=== PATIENT | female | born 1990 | race Two or more races ===

== ENCOUNTER 2025-01-07 11:08 | Outpatient (AMB) | payer BC, SELFPAY ==
--- NOTE | 2025-01-07 11:16 | OBCLNT_ITS ---
Vital Signs 01/07/25 11:17 Height 1.57 m Height Method Stated Weight 99.507 kg Weight Measurement Method Standing Scale BMI 40.1 BP 106/75 Blood Pressure Source Automatic Cuff Blood Pressure Location Left Upper Arm Position Sitting Respiration 18 Pulse 110 H Pulse Source Monitor Temp 97.2 F Temp Source Oral Pulse Oximetry (%) 98 Oxygen Delivery Method Room Air Allergies/Home Meds Allergies & Medications Allergies No Known Allergies Allergy (Verified 01/07/25 11:18) Medication Reconciliation No Known Home Medications 01/07/25 [History Confirmed 01/07/25] Intake Visit Data Collection New Patient or Established: New Patient (never been to [facility]) Reason for Visit:: NEW OBI Seen by Clinical Staff ONLY (RN/MA): No Continuous Process Coffee Roaster Required: No Do You Feel Safe at Home: Yes Authorities Contacted: N/A PCP or OBGYN visit in last 3 months: No Hx Now: Yes Are you currently on any form of Control: No Last menstrual period: 05/11/24 Pain Present Currently: No Pain Scale Used: Keene-Figueroa/Numerical Pain scale:: 0 Smoking Status Smoking Status: Never smoker Questionnaires Covid-19 Vaccine Questionnaire Has patient been vacinated for Covid-19 Have you been vacinated for Covid-19: Yes PHQ-9 PHQ-2 Over the last 2 weeks, how often have you been bothered by any of the following problems? 1. Little interest or pleasure in doing things: not at all 2. Feeling down, depressed, or hopeless: not at all Total score: 0 PHQ-9 3. Trouble falling or staying asleep, or sleeping too much: Not at all 4. Feeling tired or having little energy: Not at all 5. Poor appetite or overeating: Not at all 6. Feeling bad about yourself - or that you are a failure or have let yourself or your family down: Not at all 7. Trouble concentrating on things, such as reading the newspaper or watching television: Not at all 8. Moving or speaking so slowly that other people could have noticed? - Or the opposite - being so fidgety or restless that you have been moving around a lot more than usual: not at all 9. Thoughts that you would be better off or of hurting yourself in some way: Not at all Total score: 0 If you checked off any problems, how difficult have these problems made it for you to do your work, take care of things at home, or get along with other people?: not difficult at all Source: Developed by Drs. Boaz Bledsoe, Cinda Balbuena, Joe Nolen and colleagues, with an educational feroz from [employer]. Depression screen completed yes Social History Living Situation History Marital Status: Lives With: Family Housing: House Tobacco History Smoking Status: Never smoker Second Hand Smoke Exposure: No Alcohol History Alcohol Intake: Former Alcohol Intake Frequency: holidays/special occasions only Domestic Abuse History Do You Feel Safe at Home: Yes History of Present Illness HPI Narrative 34 at 35 week for OB transfer from Dr faith for OB care. LMP 05/11/25. EDC 02/13/25. OB sono 07/02/24, EDC 8,2. Changed EDC to 02/09/25. planned . complicated by abn 1 hr GTT and elevated 3 hr gtt. patient diagnosed with GDM. started on Metformin 500 q hs. states the fasting value is the only elevated value. results depend on her diet. . patient is O+,abs-, rpr;;nr, rub imm, HBSAG-,HIV-, HC-, GC/CT-, UA-. AFP/NIPT and carrier screen-. denies social habit,no surgery. FOB involved. reports fetus is active, No PTL complaints OB Initial Visit OB Flowsheet OB Flowsheet Initial Weight: Not Recorded Date -?--?-?-?-?-?-?-?-?-?-?-?- EGA Weight Edema CTX Effacement BP Fundal ht Pres Dilation Effacement Station Visit Note Alb Glu FHR Mov 01/07/25 -?-?-?-?-?-?-?-?-?-?-?-?- 35w 2d 99.507 kg absent absent 106/75 cephalic 34 yo IUP 35 week by 8 week sono for OB transfer. GDM on metformin 500mg Q HS, cheks BS 4 x dailt, reports fasting over 100 usually, depening on diet. patient had stopped taking metformin for several days. fetus active, still working, no labor complaints, schedule MFM appointment for growth, continue metformin 500 q HS, start weekly nst/bpp, fkc bid, I discussed diet and fkc, walk 40 min daily. rtc 2 week, gbs nv 146 active Menstrual History Menstrual reliability: definite Flow: normal Menstrual regularity: regular Monthly: Yes Age at menarche: 13 On control pills at conception: No OB History Para: 1 Hx # Pregnancies: 0 Hx Total # of Abortions (Spontaneous & Elective): 0 # of Living Children: 0 Infection History & Risk Evaluation History of STDs: none HIV risk evaluation: low risk Hepatitis B risk evaluation: low risk Patient or partner has history of Genital Herpes: No Varicella/chicken pox status: immunized Genetic Screening & History Genetic Screening/Teratology Counseling - Includes patient, baby's father, or anyone in either family with: 1. Patient's age 35 years or older as of estimated date of delivery: No 2. Thalassemia (Malawian, Mexican, Mediterranean, or Background); MCV less than 80: No 3. Neural Tube Defect (Meningomyelocele, Spina Bifida, or Anencephaly): No 4. Congenital Heart Defect: No 5. Down Syndrome: No 6. Baldo-Sachs (Ashkenazi Buddhist, Cajun, Botswanan Gregg): No 7. Catrachita Disease (Ashkenazi Buddhist): No 8. Familial Dysautonomia (Ashkenazi Buddhist): No 9. Sickle Cell Disease or Trait (): No 10. Hemophilia or other blood disorders: No 11. Muscular Dystrophy: No 12. Cystic Fibrosis: No 13. [place] Chorea: No 14. Mental Retardation/Autism: No 15. Other inherited genetic or chromosomal disorder: No 16. Maternal Metabolic Disorder (EG,TYPE 1 Diabetes, PKU): No 17. Patient or baby's father had a child with defects not listed above: No 18. Recurrent loss or a stillbirth: No 19. Medications (including supplements, vitamins, herbs or otc drugs)/illicit/recreational drugs/alcohol since last menstrual period: No 20. Any other: No Infection History 1. Live with someone with TB or exposed to TB: No 2. Rash or viral illness since last menstrual period: No 3. Hepatitis B,C: No Other (see comments) Source: [employer] Review of Systems Review of Systems Systems Reviewed: All systems reviewed, normal except as documented Exam General Limitations: no limitations General Appearance: alert, in no apparent distress, comfortable, cooperative, healthy appearing, well developed and well groomed Head Head exam: atraumatic, normocephalic and normal inspection Resp Respiratory exam: Present normal lung sounds bilaterally Card Cardiovascular exam: Present regular rate, normal rhythm and normal heart sounds Abdominal Abdominal exam: Present soft and normal bowel sounds Psych Psychiatric exam: Present normal affect and normal mood Office Procedures OB Clinic LOC & Office Proc's Nursing/Assessment Patient Status: Initial/New Patient OB Clinic Nursing Assessment: Medication Reconciliation, Update PMH in EMR and Vital Signs OB Clinic Coordination of Care: Education Complex Pt/Fam, Consent,records obtained, informed consent and Staff clarify orders Special Needs: Heart tones New Patient Charge New Patient Point Assignment: [id number] New Patient Point Charge: RET[employer] PROFESSIONAL Level 3 ([id number]) Assessment & Plan Diagnosis / Problem List (1) Encounter for care in third trimester of first : Status: Acute Plan continue PNV, start week nst/bpp, fkc bid, schedule MFM referral. discuss labor precaution, review GDM diet, glucose monitoring 4 x daily. walk 40 minute daily, increase fluid. rtc 1 week, GBS nv Additional Plan Follow Up: 1 Week (obc)
[2025-01-07 11:17] VITALS: BP 106/75; PULSE 110; RESP 18; TEMP 36.2; O2SAT 98; BMI 40.1
== END 2025-01-07 11:41 | disposition home or self-care (01) ==
LOC: HODSOBC 11:08
PROVIDERS: PCP Obstetrics & Gynecology; Referring Provider Obstetrics & Gynecology; Supervising Provider Advanced Practice Midwife; Visit Provider Advanced Practice Midwife
DX: O09.893 Supervision of other high risk pregnancies, third trimester (principal); Z3A.35 35 weeks gestation of pregnancy; O24.415 Gestational diabetes mellitus in pregnancy, controlled by oral hypoglycemic drugs
CPT/HCPCS: 81001; 99203; G0463

== ENCOUNTER → 2025-01-07 | Outpatient (CLI) | payer BC, SELFPAY ==
[2025-01-07 13:49] LABS: Glucose Estimated Average 108 mg/dL (80-131); Hemoglobin A1C 5.4 % Hgb (4.8-6.0)
== END | disposition home or self-care (01) ==
PROVIDERS: Referring Provider Advanced Practice Midwife; Visit Provider Advanced Practice Midwife
DX: Z34.03 Encounter for supervision of normal first pregnancy, third trimester (principal)
CPT/HCPCS: 36415; 83036

== ENCOUNTER 2025-01-14 15:24 | Outpatient (AMB) | payer BC, SELFPAY ==
--- NOTE | 2025-01-14 15:32 | OBCLNT_ITS ---
Vital Signs 01/14/25 15:45 Height 1.57 m Height Method Stated Weight 99.337 kg Weight Measurement Method Standing Scale BMI 40.3 BP 115/76 Blood Pressure Source Automatic Cuff Blood Pressure Location Right Upper Arm Position Sitting Respiration 20 Pulse 92 Pulse Source Monitor Temp 98 F Temp Source Oral Pulse Oximetry (%) 96 Oxygen Delivery Method Room Air Allergies/Home Meds Allergies & Medications Allergies No Known Allergies Allergy (Verified 01/14/25 15:45) Medication Reconciliation No Known Home Medications 01/07/25 [History Confirmed 01/14/25] Intake Visit Data Collection New Patient or Established: Established Patient (seen at [facility] within 3 years) Reason for Visit:: CARE Seen by Clinical Staff ONLY (RN/MA): No Fitness Specialist Required: No Do You Feel Safe at Home: Yes Authorities Contacted: N/A PCP or OBGYN visit in last 3 months: Yes Hx Now: Yes Are you currently on any form of Control: No Pain Present Currently: No Pain Scale Used: Keene-Figueroa/Numerical Pain scale:: 0 Smoking Status Smoking Status: Never smoker Questionnaires Covid-19 Vaccine Questionnaire Has patient been vacinated for Covid-19 Have you been vacinated for Covid-19: Yes PHQ-9 PHQ-2 Over the last 2 weeks, how often have you been bothered by any of the following problems? 1. Little interest or pleasure in doing things: not at all 2. Feeling down, depressed, or hopeless: not at all Total score: 0 PHQ-9 3. Trouble falling or staying asleep, or sleeping too much: Not at all 4. Feeling tired or having little energy: Not at all 5. Poor appetite or overeating: Not at all 6. Feeling bad about yourself - or that you are a failure or have let yourself or your family down: Not at all 7. Trouble concentrating on things, such as reading the newspaper or watching television: Not at all 8. Moving or speaking so slowly that other people could have noticed? - Or the opposite - being so fidgety or restless that you have been moving around a lot more than usual: not at all 9. Thoughts that you would be better off or of hurting yourself in some way: Not at all Total score: 0 Source: Developed by Drs. Boaz L. Cinda Bledsoe Kurt Kroenke and colleagues, with an educational feroz from [employer]. Depression screen completed yes Social History Living Situation History Lives With: Family Housing: House Tobacco History Smoking Status: Never smoker Second Hand Smoke Exposure: No Alcohol History Alcohol Intake: Former Alcohol Intake Frequency: holidays/special occasions only Domestic Abuse History Do You Feel Safe at Home: Yes Care OB Visit Log OB Flowsheet Initial Weight: Not Recorded Date -?-?-?-?-?-?-?-?-?-?-?-?- EGA Weight BP Alb Glu CTX Pres Fundal ht FHR Mov Dilation Station Effacement Hx Notes Visit Note 01/07/25 -?-?-?-?-?-?-?-?-?-?-?-?- 35w 2d 99.507 kg 106/75 absent cephalic 146 active 34 yo IUP 35 week by 8 week sono for OB transfer. GDM on metformin 500mg Q HS, cheks BS 4 x dailt, reports fasting over 100 usually, depening on diet. patient had stopped taking metformin for several days. fetus active, still working, no labor complaints, schedule MFM appointment for growth, continue metformin 500 q HS, start weekly nst/bpp, fkc bid, I discussed diet and fkc, walk 40 min daily. rtc 2 week, gbs nv 01/14/25 -?-?-?-?-?-?-?-?-?-?-?-?- 36w 2d 99.337 kg 115/76 absent cephalic 36 145 active GDM on Metformin 500 qhs. reports Improved compliance with GDM diet. reviewed BS on ap. fasting under 100 :85% of the time. otherwise BS after meals are at goal. patient walk 1 hr daily. reports good FM and compliant with FKC bid. week NST/BPP started. MFM pending/was ordered urgent GBS t madhavi. GBS today.. continue FKC bid . review labor precaution. reviewed diet and compliance, continue to track sugars and testing, continue week NST/BPP. patient will call [facility] for appointment. rtc 1 week SHARON Calculator Estimated Delivery Date Method Current WG Current Estimate 02/09/25 Ultrasound #1 36w 2d Other Estimates 02/15/25 LMP (Certain) 35w 3d 01/30/25 Ultrasound #2 37w 5d Notes Visit Date: 01/07/25 Last Updated by: Madelin Viveros, KARINA 34 yo , GDM, metformin 500 Qhs. 1 hr gt and 3hr gtt high. RPR:Nr, , GC/CT-,O+,abs-, HBSAG-,HIV-,HC-, AFP<NIPT, carrier neg. LMP: 05/11/24. EDC 02/13/25. sharon by 8.2 wk sono: 02/09/25, 07/02/24:8w2 Office Procedures OB Clinic LOC & Office Proc's Nursing/Assessment Patient Status: Established Patient OB Clinic Nursing Assessment: Medication Reconciliation, Update PMH in EMR and Vital Signs OB Clinic Coordination of Care: Complex Care and Chronic Disease 1-5, Consent,records obtained, informed consent, Education Simp Pt/Fam, Lab and Imaging orders, Results/Orders obtained and Staff clarify orders Special Needs: Heart tones Miscellaneous Interventions: Pelvic no cultures Established Patient Charge Established Patient Point Assignment: 145 Established Patient Point Charge: EP Level 4 (120-155) Assessment & Plan Diagnosis / Problem List (1) Obstetric risk in patient in third trimester, antepartum: Status: Acute (2) Diet controlled gestational diabetes mellitus (GDM) in third trimester: Status: Acute Plan continue week NST/BPP. discuss labor precaution and fkc bid. continue compliance with Metformin 500 at hs, and continue GDM diet. GBS done. . continue to monitor BS fasting and after meals. f/u with OB NV to eval sugars Additional Plan Follow Up: 1 Week (ob check)
[2025-01-14 15:45] VITALS: BP 115/76; PULSE 92; RESP 20; TEMP 36.6; O2SAT 96; BMI 40.3
== END 2025-01-14 16:13 | disposition home or self-care (01) ==
LOC: HODSOBC 15:24
PROVIDERS: PCP Advanced Practice Midwife; Referring Provider Advanced Practice Midwife; Supervising Provider Advanced Practice Midwife; Visit Provider Advanced Practice Midwife
DX: O09.893 Supervision of other high risk pregnancies, third trimester (principal); O24.410 Gestational diabetes mellitus in pregnancy, diet controlled; Z3A.36 36 weeks gestation of pregnancy
CPT/HCPCS: 99214; G0463

== ENCOUNTER 2025-01-20 09:23 | Outpatient (AMB) | payer BC, SELFPAY ==
[2025-01-20 10:06] VITALS: BP 120/84; PULSE 96; RESP 18; TEMP 36.5; O2SAT 97; BMI 40.3
--- NOTE | 2025-01-20 10:06 | OBCLNT_ITS ---
Vital Signs 01/20/25 10:06 Height 1.57 m Height Method Stated Weight 99.45 kg Weight Measurement Method Standing Scale BMI 40.3 BP 120/84 Blood Pressure Source Automatic Cuff Blood Pressure Location Right Upper Arm Position Sitting Respiration 18 Pulse 96 Pulse Source Monitor Temp 97.7 F Temp Source Oral Pulse Oximetry (%) 97 Oxygen Delivery Method Room Air Allergies/Home Meds Allergies & Medications Allergies No Known Allergies Allergy (Verified 01/20/25 10:08) Medication Reconciliation No Known Home Medications 01/07/25 [History Confirmed 01/20/25] Intake Visit Data Collection New Patient or Established: Established Patient (seen at [facility] within 3 years) Reason for Visit:: - Routine visit at 37 weeks and 1 day gestation - Gestational diabetes, on metformin - Increased numbness in arms and hands, notice it more this week Seen by Clinical Staff ONLY (RN/MA): No College Instructor Required: No Do You Feel Safe at Home: Yes Authorities Contacted: N/A PCP or OBGYN visit in last 3 months: Yes Hx Now: Yes Are you currently on any form of Control: No Pain Present Currently: No Pain Scale Used: Keene-Figueroa/Numerical Pain scale:: 0 Smoking Status Smoking Status: Never smoker Questionnaires Covid-19 Vaccine Questionnaire Has patient been vacinated for Covid-19 Have you been vacinated for Covid-19: Yes PHQ-9 PHQ-2 Over the last 2 weeks, how often have you been bothered by any of the following problems? 1. Little interest or pleasure in doing things: not at all 2. Feeling down, depressed, or hopeless: not at all Total score: 0 PHQ-9 3. Trouble falling or staying asleep, or sleeping too much: Not at all 4. Feeling tired or having little energy: Not at all 5. Poor appetite or overeating: Not at all 6. Feeling bad about yourself - or that you are a failure or have let yourself or your family down: Not at all 7. Trouble concentrating on things, such as reading the newspaper or watching television: Not at all 8. Moving or speaking so slowly that other people could have noticed? - Or the opposite - being so fidgety or restless that you have been moving around a lot more than usual: not at all 9. Thoughts that you would be better off or of hurting yourself in some way: Not at all Total score: 0 Source: Developed by Drs. Boaz Bledsoe, Cinda Balbuena, Joe Nolen and colleagues, with an educational feroz from [employer]. Depression screen completed yes Social History Living Situation History Lives With: Family Housing: House Tobacco History Smoking Status: Never smoker Second Hand Smoke Exposure: No Alcohol History Alcohol Intake: Former Alcohol Intake Frequency: holidays/special occasions only Domestic Abuse History Do You Feel Safe at Home: Yes History of Present Illness HPI Narrative - Veronica Collins is a 37-week and 1-day woman () presenting for a visit with an estimated due date of 02-09-2025. - She has gestational diabetes, managed with metformin 500 mg at night. - Self-monitors blood glucose at home: - Fasting glucose occasionally elevated (102-112 mg/dL) - Reports glucose levels are okay with some high days - movement: - Baby is active, particularly in the morning and after meals - Less activity noted throughout the day - Reports increased numbness in arms and hands, more noticeable this week - Denies any vaginal deliveries or C-sections in the past; this is her first - Recently transferred care from an outside facility ([facility]) - Had Group B Strep (GBS) swab done at the last visit - Scheduled for weekly testing at the hospital No contractions/ LOF/VB, reports good FM No LOPEZ/VC/RUQ/Epig pain Care OB Visit Log OB Flowsheet Initial Weight: Not Recorded Date -?-?-?-?-?-?-?-?-?-?-?-?- EGA Weight BP Alb Glu CTX Pres Fundal ht FHR Mov Dilation Station Effacement Hx Notes Visit Note 01/07/25 -?-?-?-?-?-?-?-?-?-?-?-?- 35w 2d 99.507 kg 106/75 absent cephalic 146 active 34 yo IUP 35 week by 8 week sono for OB transfer. GDM on metformin 500mg Q HS, cheks BS 4 x dailt, reports fasting over 100 usually, depening on diet. patient had stopped taking metformin for several days. fetus active, still working, no labor complaints, schedule MFM appointment for growth, continue metformin 500 q HS, start weekly nst/bpp, fkc bid, I discussed diet and fkc, walk 40 min daily. rtc 2 week, gbs nv 01/14/25 -?-?-?-?-?-?-?-?-?-?-?-?- 36w 2d 99.337 kg 115/76 absent cephalic 36 145 active GDM on Metformin 500 qhs. reports Improved compliance with GDM diet. reviewed BS on ap. fasting under 100 :85% of the time. otherwise BS after meals are at goal. patient walk 1 hr d aily. reports good FM and compliant with FKC bid. week NST/BPP started. MFM pending/was ordered urgent GBS t madhavi. GBS today.. continue FKC bid . review labor precaution. reviewed diet and complia nce, continue to track sugars and testing, continue week NST/BPP. patient will call [facility] [place] for appointment. rtc 1 week 01/20/25 -?-?-?-?-?-?-?-?-?-?-?-?- 37w 1d 99.45 kg 120/84 at 37w1d with gestational diabetes on metformin, presents for routine care. Reports occasional elevated fasting glucose (102?112 mg/dL), but overall self-monitoring okay. Baby active in AM and postprandially, less so throughout day. Complains of increased numbness in arms/hands this week, consistent with carpal tunnel. Transferred care in 3rd trimester; GBS swab completed last visit. NSTs ongoing weekly. FHT 147 bpm. Plan: Schedule ultrasound for growth Book 39w induction date per GDM protocol (patient prefers to avoid but counseled on risks) Continue metformin 500mg qHS and SMBG Continue weekly NSTs Discuss labor plan after ultrasound precautions reviewed SHARON Calculator Estimated Delivery Date Method Current WG Current Estimate 02/09/25 Ultrasound #1 37w 2d Other Estimates 02/15/25 LMP (Certain) 36w 3d 01/30/25 Ultrasound #2 38w 5d Notes Visit Date: 01/07/25 Last Updated by: Madelin Viveros CNM 34 yo , GDM, metformin 500 Qhs. 1 hr gt and 3hr gtt high. RPR:Nr, , GC/CT-,O+,abs-, HBSAG-,HIV-,HC-, AFP<NIPT, carrier neg. LMP: 05/11/24. EDC 02/13/25. sharon by 8.2 wk sono: 02/09/25, 07/02/24:8w2 Exam General General Appearance: alert, in no apparent distress and healthy appearing Head Head exam: atraumatic Neck Neck exam: Present normal inspection and trachea midline Chest Chest inspection: Present normal inspection and symmetric chest wall rise External exam: Present normal external exam; Absent tenderness Neuro Neurological exam: Present oriented X3 Psych Psychiatric exam: Present normal affect and normal mood Office Procedures OB Clinic LOC & Office Proc's Nursing/Assessment Patient Status: Established Patient OB Clinic Nursing Assessment: Medication Reconciliation, Update PMH in EMR and Vital Signs OB Clinic Coordination of Care: Complex Care and Chronic Disease 1-5, Consent,records obtained, informed consent, Education Simp Pt/Fam, Lab and Imaging orders and Staff clarify orders Special Needs: Heart tones Established Patient Charge Established Patient Point Assignment: 130 Established Patient Point Charge: EP Level 4 (120-155) Assessment & Plan Diagnosis / Problem List (1) Obstetric risk in patient in third trimester, antepartum: Status: Acute (2) Diet controlled gestational diabetes mellitus (GDM) in third trimester: Status: Acute Plan Problem List - Gestational diabetes mellitus - , 37 weeks and 1 day - Carpal tunnel syndrome Assessment - 1 para 0 at 37 weeks 1 day gestation - Gestational diabetes mellitus, managed with metformin 500mg nightly - Self-monitoring blood glucose at home, with occasional fasting levels of 102- 112 mg/dL - Transferred care from outside facility in third trimester - Group B Streptococcus (GBS) swab completed at previous visit - movement reported as active, more noticeable in mornings and evenings - testing initiated, with weekly non-stress tests - Carpal tunnel syndrome symptoms, with increased numbness in hands and arms - heart rate 147 bpm Plan - Schedule complete ultrasound to measure baby's weight - Call hospital to book induction date at 39 weeks (patient expressed desire to avoid this, but medically recommended due to gestational diabetes) - Continue metformin 500mg at night - Continue self-monitoring blood glucose at home - Attend scheduled anesthesia appointments at hospital for monitoring - Follow up after ultrasound to discuss results and delivery plan Educated the patient on labor signs, including regular contractions, lower back pain, and changes in vaginal discharge. Advised avoiding heavy lifting and getting adequate rest. Instructed to contact the office immediately if any signs occur. Discussed the importance of a balanced diet rich in folic acid, iron, and calcium, and provided a list of recommended and to-avoid foods. Emphasized avoiding high-sugar foods to reduce gestational diabetes risk. Encouraged hydration and frequent, small meals for energy..
== END 2025-01-20 10:27 | disposition home or self-care (01) ==
LOC: HODSOBC 09:23
PROVIDERS: PCP Advanced Practice Midwife; Referring Provider Advanced Practice Midwife; Supervising Provider Obstetrics & Gynecology; Visit Provider Obstetrics & Gynecology
DX: O09.893 Supervision of other high risk pregnancies, third trimester (principal); Z3A.37 37 weeks gestation of pregnancy; O24.415 Gestational diabetes mellitus in pregnancy, controlled by oral hypoglycemic drugs; O99.353 Diseases of the nervous system complicating pregnancy, third trimester; G56.00 Carpal tunnel syndrome, unspecified upper limb
CPT/HCPCS: 99214; G0463

== ENCOUNTER 2025-01-20 10:40 | Outpatient (CLI) | payer BC, SELFPAY ==
--- NOTE | 2025-01-20 11:09 | XR_ITS ---
Examination: Complete OB ultrasound greater than 14 weeks Date and time of exam: January 20, 2025 1117 hours INDICATIONS: Diagnosis gestational diabetes Findings: Viable intrauterine single fetus with single amniotic sac presentation cephalic Cardiac motion 131 BPM Placenta posterior fundal grade 2 Umbilical cord insertion 3 vessel seen Amniotic fluid index 18 cm Cervix 4.7 cm Nuchal cord x2 Ovaries obscured by bowel gas. Composite estimated gestational age based on BPD, head circumference, abdominal circumference, femur length is 36 weeks 5 days Estimated weight 2860 g. Survey of intracranial anatomy, spinal anatomy, abdominal anatomy, four-chamber heart performed with no abnormalities identified. Impression: Viable intrauterine gestation cephalic presentation Estimated gestational age 36 weeks 5 days Nuchal cord x2 with flow.
[2025-01-20 12:12] VITALS: PULSE 79; O2SAT 99
[2025-01-20 12:16] VITALS: BP 123/71; PULSE 85
[2025-01-20 12:24] VITALS: BP 123/71; PULSE 85; RESP 18; RESP 98; TEMP 36.8; BMI 39.9
== END 2025-01-20 12:55 | disposition home or self-care (01) ==
LOC: S4S1 10:57 → S4SX 10:58
PROVIDERS: Referring Provider Obstetrics & Gynecology; Visit Provider Obstetrics & Gynecology
DX: O24.415 Gestational diabetes mellitus in pregnancy, controlled by oral hypoglycemic drugs (principal); Z3A.36 36 weeks gestation of pregnancy
CPT/HCPCS: 59025; 76805

== ENCOUNTER 2025-01-28 13:59 | Outpatient (RCR) | payer BC, SELFPAY ==
--- NOTE | 2025-01-14 14:13 | XR_ITS ---
Examination: Biophysical profile, ultrasound Date and time of exam: January 14, 2025 1415 hours INDICATIONS: Diagnosis gestational diabetes Technique: Multiple transabdominal sonographic images of the pelvis abdomen obtained. Attention is directed to the breathing movement, gross body movement, amniotic fluid volume and tone. Findings: Amniotic fluid index 14.9 cm Total biophysical profile is 8 of 8. breathing movement is 2. Gross body movement is 2. tone is 2. Qualitative amniotic fluid volume is 2 Impression: Biophysical profile is 8 of 8.
[2025-01-14 14:55] VITALS: BP 99/62; PULSE 92; RESP 16; TEMP 36.7
--- NOTE | 2025-01-21 14:06 | XR_ITS ---
Examination: Biophysical profile, ultrasound Date and time of exam: January 21, 2025 1417 hours INDICATIONS: Diagnosis gestational diabetes Technique: Multiple transabdominal sonographic images of the pelvis abdomen obtained. Attention is directed to the breathing movement, gross body movement, amniotic fluid volume and tone. Findings: Amniotic fluid index 16 cm Total biophysical profile is 8 of 8. breathing movement is 2. Gross body movement is 2. tone is 2. Qualitative amniotic fluid volume is 2 Impression: Biophysical profile is 8 of 8.
[2025-01-21 15:27] VITALS: BP 94/55; PULSE 96; RESP 16; TEMP 36.7
--- NOTE | 2025-01-28 14:08 | XR_ITS ---
Examination: Biophysical profile, ultrasound Date and time of exam: January 28, 2025 1412 hours INDICATIONS: Gestational diabetes diagnosis Technique: Multiple transabdominal sonographic images of the pelvis abdomen obtained. Attention is directed to the breathing movement, gross body movement, amniotic fluid volume and tone. Findings: Amniotic fluid index 15.4 cm Total biophysical profile is 8 of 8. breathing movement is 2. Gross body movement is 2. tone is 2. Qualitative amniotic fluid volume is 2 Impression: Biophysical profile is 8 of 8.
[2025-01-28 14:30] VITALS: BP 114/57; PULSE 85; RESP 16; TEMP 36.8
== END 2025-01-28 23:59 | disposition home or self-care (01) ==
LOC: S4S1 13:59
PROVIDERS: PCP Family Medicine; Referring Provider Advanced Practice Midwife; Visit Provider Advanced Practice Midwife
DX: O24.410 Gestational diabetes mellitus in pregnancy, diet controlled (principal); O09.93 Supervision of high risk pregnancy, unspecified, third trimester; Z3A.38 38 weeks gestation of pregnancy
CPT/HCPCS: 59025; 76819

== ENCOUNTER 2025-01-28 15:04 | Outpatient (AMB) | payer BC, SELFPAY ==
[2025-01-28 15:26] VITALS: BP 115/78; PULSE 98; RESP 18; TEMP 36.6; O2SAT 98; BMI 40.6
--- NOTE | 2025-01-28 15:26 | OBCLNT_ITS ---
Vital Signs 01/28/25 15:26 Height 1.57 m Height Method Stated Weight 100.698 kg Weight Measurement Method Standing Scale BMI 40.6 BP 115/78 Blood Pressure Source Automatic Cuff Blood Pressure Location Right Upper Arm Position Sitting Respiration 18 Pulse 98 Pulse Source Monitor Temp 97.8 F Temp Source Oral Pulse Oximetry (%) 98 Oxygen Delivery Method Room Air Allergies/Home Meds Allergies & Medications Allergies No Known Allergies Allergy (Verified 01/28/25 15:28) Medication Reconciliation No Known Home Medications 01/07/25 [History Confirmed 01/28/25] Intake Visit Data Collection New Patient or Established: Established Patient (seen at [facility] within 3 years) Reason for Visit:: CARE Seen by Clinical Staff ONLY (RN/MA): No Manager Strategic Marketing Required: No Do You Feel Safe at Home: Yes Authorities Contacted: N/A PCP or OBGYN visit in last 3 months: Yes Hx Now: Yes Are you currently on any form of Control: No Pain Present Currently: No Pain Scale Used: Keene-Figueroa/Numerical Pain scale:: 0 Smoking Status Smoking Status: Never smoker Questionnaires Covid-19 Vaccine Questionnaire Has patient been vacinated for Covid-19 Have you been vacinated for Covid-19: Yes PHQ-9 PHQ-2 Over the last 2 weeks, how often have you been bothered by any of the following problems? 1. Little interest or pleasure in doing things: not at all 2. Feeling down, depressed, or hopeless: not at all Total score: 0 PHQ-9 3. Trouble falling or staying asleep, or sleeping too much: Not at all 4. Feeling tired or having little energy: Not at all 5. Poor appetite or overeating: Not at all 6. Feeling bad about yourself - or that you are a failure or have let yourself or your family down: Not at all 7. Trouble concentrating on things, such as reading the newspaper or watching television: Not at all 8. Moving or speaking so slowly that other people could have noticed? - Or the opposite - being so fidgety or restless that you have been moving around a lot more than usual: not at all 9. Thoughts that you would be better off or of hurting yourself in some way: Not at all Total score: 0 Source: Developed by Drs. Boaz Bledsoe, Cinda Balbuena, Joe Nolen and colleagues, with an educational feroz from [employer]. Depression screen completed yes Social History Living Situation History Lives With: Family Housing: House Tobacco History Smoking Status: Never smoker Second Hand Smoke Exposure: No Alcohol History Alcohol Intake: Former Alcohol Intake Frequency: holidays/special occasions only Domestic Abuse History Do You Feel Safe at Home: Yes Care OB Visit Log OB Flowsheet Initial Weight: Not Recorded Date -?-?-?-?-?-?-?-?-?-?-?-?- EGA Weight BP Alb Glu CTX Pres Fundal ht FHR Mov Dilation Station Effacement Hx Notes Visit Note 01/07/25 -?-?-?-?-?-?-?-?-?-?-?-?- 35w 2d 99.507 kg 106/75 absent cephalic 146 active 34 yo IUP 35 week by 8 week sono for OB transfer. GDM on metformin 500mg Q HS, cheks BS 4 x dailt, reports fasting over 100 usually, depening on diet. patient had stopped taking metformin for several days. fetus active, still working, no labor complaints, schedule MFM appointment for growth, continue metformin 500 q HS, start weekly nst/bpp, fkc bid, I discussed diet and fkc, walk 40 min daily. rtc 2 week, gbs nv 01/14/25 -?-?-?-?-?-?-?-?-?-?-?-?- 36w 2d 99.337 kg 115/76 absent cephalic 36 145 active GDM on Metformin 500 qhs. reports Improved compliance with GDM diet. reviewed BS on ap. fasting under 100 :85% of the time. otherwise BS after meals are at goal. patient walk 1 hr daily. reports good FM and compliant with FKC bid. week NST/BPP started. MFM pending/was ordered urgent GBS t madhavi. GBS today.. continue FKC bid . review labor precaution. reviewed diet and compliance, continue to track sugars and testing, continue week NST/BPP. patient will call [facility] for appointment. rtc 1 week 01/20/25 -?-?-?-?-?-?-?-?-?-?-?-?- 37w 1d 99.45 kg 120/84 at 37w1d with gestational diabetes on metformin, presents for routine care. Reports occasional elevated fasting glucose (102?112 mg/dL), but overall self-monitoring okay. Baby active in AM and postprandially, less so throughout day. Complains of increased numbness in arms/hands this week, consistent with carpal tunnel. Transferred care in 3rd trimester; GBS swab completed last visit. NSTs ongoing weekly. FHT 147 bpm. Plan: Schedule ultrasound for growth Book 39w induction date per GDM protocol (patient prefers to avoid but counseled on risks) Continue metformin 500mg qHS and SMBG Continue weekly NSTs Discuss labor plan after ultrasound precautions reviewed 01/28/25 -?-?-?-?-?-?-?-?-?-?-?-?- 38w 2d 100.698 kg 115/78 absent breech 37 145 active 38wk2 with GDM. diet and metformin 500 q hs. reports sugars at goal. fasting below 95. walks 1hr/day. fetus active. compliant with fkc bid. Patient refused IOL at 39 week. agrees to 40 week IOL. discussed procedure and why early IOL is needed discuss labor precaution, fkc bid, continue to monitor BS 4 x/day. continue to log sugars. week nst bpp. continue metformin 500 qhs. labor precaution. rtc 1 week obc discuss labor precaution, fk c bid, continue to monitor BS 4 x/day. continue to log sugars. week nst bpp. continue metformin 500 qhs. labor precaution. rtc 1 week obc. IOL 02/09 SHARON Calculator Estimated Delivery Date Method Current WG Current Estimate 02/09/25 Ultrasound #1 38w 2d Other Estimates 02/15/25 LMP (Certain) 37w 3d 01/30/25 Ultrasound #2 39w 5d Notes Visit Date: 01/07/25 Last Updated by: Madelin Viveros CNM 34 yo , GDM, metformin 500 Qhs. 1 hr gt and 3hr gtt high. RPR:Nr, , GC/CT-,O+,abs-, HBSAG-,HIV-,HC-, AFP<NIPT, carrier neg. LMP: 05/11/24. EDC 02/13/25. sharon by 8.2 wk sono: 02/09/25, 07/02/24:8w2 Office Procedures OB Clinic LOC & Office Proc's Nursing/Assessment Patient Status: Established Patient OB Clinic Nursing Assessment: Medication Reconciliation, Update PMH in EMR and Vital Signs OB Clinic Coordination of Care: Complex Care and Chronic Disease 1-5, Consent,records obtained, informed consent, Education Simp Pt/Fam, Lab and Imaging orders, Results/Orders obtained and Staff clarify orders Special Needs: Heart tones Established Patient Charge Established Patient Point Assignment: 135 Established Patient Point Charge: EP Level 4 (120-155) Assessment & Plan Diagnosis / Problem List (1) Obstetric risk in patient in third trimester, antepartum: Status: Acute (2) Diet controlled gestational diabetes mellitus (GDM) in third trimester: Status: Acute Plan Continue to monitor blood sugars 4 times a day. Continue GDM diet. Continue to walk 40 minutes a day. Continue weekly NST BPP. kick counts twice a day. Increase fluids. Continue vitamins. Induction of labor scheduled for February 09. Discussed induction with patient. Return in a week OB check Additional Plan Follow Up: 1 Week (obc)
== END 2025-01-28 16:12 | disposition home or self-care (01) ==
LOC: HODSOBC 15:04
PROVIDERS: PCP Advanced Practice Midwife; Referring Provider Advanced Practice Midwife; Supervising Provider Advanced Practice Midwife; Visit Provider Advanced Practice Midwife
DX: O09.893 Supervision of other high risk pregnancies, third trimester (principal); O24.415 Gestational diabetes mellitus in pregnancy, controlled by oral hypoglycemic drugs; Z3A.38 38 weeks gestation of pregnancy
CPT/HCPCS: 99214; G0463

== ENCOUNTER 2025-02-01 16:39 | Inpatient (IN) | payer BC, SELFPAY ==
[2025-02-01] VITALS (29 sets, daily range): BP systolic 88–123; BP diastolic 59–77; PULSE 75–95; RESP 18–99; TEMP 36.6–36.7; O2SAT 94–100; BMI 42.8
[2025-02-01 18:00] LABS: ROM Kit Lot # 57809069
[2025-02-01 18:01] LABS: Swb Mxed in Solvent 1 min? Yes
[2025-02-01 18:02] LABS: Rupture of Fetal Membranes Positive (Negative)
[2025-02-01 18:04] LABS: ROM Swab Mixed By: DURAJ
--- NOTE | 2025-02-01 18:17 | XR_ITS ---
Examination: age and TECHNIQUE: Limited transabdominal sonographic images pelvis Date and time: February 01, 2025 1827 hours INDICATIONS: Labor evaluation, leaking amniotic fluid today, and no presentation FINDINGS: presentation cephalic spine maternal right. Cardiac motion 145 BPM IMPRESSION: Viable intrauterine gestation cephalic presentation
[2025-02-01 20:20] LABS: Basophils % (Auto) 0 % (0-2.5); Eosinophils # (Auto) 0.1 Thou/mm3 (0.0-0.5); Eosinophils % (Auto) 1 % (0-10); Hematocrit 34.9 % (36.0-46.0); Hemoglobin 12.7 g/dL (12.0-16.0); Immature Granulocytes % (Auto) 0 % (0-0); Immature Granulocytes Auto 0.03 Thou/mm3 (0.00-0.00); Lymphocytes # (Auto) 1.4 Thou/mm3 (1.0-4.8); Lymphocytes % (Auto) 16 % (10-50); Mean Corpuscular HGB Conc 36.4 g/dl (31.0-37.0); Mean Corpuscular Hemoglobin 31.8 pg (25.0-35.0); Mean Corpuscular Volume 87 fL (80-100); Monocytes # (Auto) 0.8 Thou/mm3 (0.0-0.8); Monocytes % (Auto) 9 % (0-12); Neutrophils # (Auto) 6.6 Thou/mm3 (1.8-7.7); Neutrophils % (Auto) 74 % (37-80); Nucleated Red Blood Cell % 0 /100 WBC (0); Platelet Count 207 Thou/mm3 (140-440); RDW Standard Deviation 41.1 fL (36.4-46.3); White Blood Count 8.8 Thou/mm3 (3.6-11.0)
[2025-02-01 20:56] LABS: Syphilis Nonreactive (Nonreactive)
[2025-02-01] MEDS: Ampicillin Inj 2,000 MG in SODIUM CHLORIDE 0.9% (POP) 100 ML 200 MG IV (21:05)
--- NOTE | 2025-02-01 21:52 | ESHP_ITS ---
Documentation for date of: 02/01/25 OB Labor/Induct. HPI History of Present Illness Chief complaint: ROM/NIL : 1 Para: 0 Term pregnancies: 0 pregnancies: 0 Living children: 0 History of Abortions: Spontaneous and Elective: 0 History of Vaginal deliveries: 0 History of sections: No History of : No Date of last menstrual period: 07/11/24 SHARON: 02/09/25 Gestational Age (weeks): 38 Gestational Age (days): 4 Gestational age based on last menstrual period: 29 History of present illness: Need for weight eight 64-year-old 1 para 0 admit to labor and delivery with complaints of leaking fluid since 4 in the morning. Occasional contraction. Patient was first was seen at Dr. Johnson's office for care. First visit 8 weeks. Last. May 11, 2024. This gave due date February 15, 2025. First ultrasound in June was 8 weeks and is changed due date to February 09, 2025. Patient then had a 25-week ultrasound in September that confirmed dates. Denies social habits. Denies surgery. Denies chronic illness. Patient had a history of abnormal 1 hour that was over 185. So she has been treated for GDM with diet. Glucose has been in good control. And patient has been compliant with weekly NST and BPP. Reports good movement. Patient is O+, antibody screen negative, RPR nonreactive, rubella immune, hepatitis B negative, hep C negative, HIV negative, GC and Chlamydia were negative. aFP was negative. NIPT negative. Carrier screens negative. And GBS was not ran. History of Present Dating criteria: LMP confirmed by 1st trimester US Adequate Care: Yes Ultrasounds: normal 1st trimester US and normal mid trimester US Obstetrical complications: gestational diabetes Medical complications: none Labs Labs: Positive: Rubella Titre, Negative: RPR, Hepatitis B, HIV, Chlamydia and Gonorrhea and Unknown: Herpes Type 1, Herpes Type 2 and Group Beta Strep Past Medical History Surgical History SURGICAL: Negative Section Meds Home Medications and Allergies Home Medications ?Medication ?Instructions ?Recorded ?Confirmed ?Type metformin 500 mg tablet 500 mg PO DAILY 02/01/2504/20 History vit no.95-ferrous 1 tab PO DAILY 02/01/2504/20 History fumarate 28 mg-folic acid 800 mcg tablet () Allergies Allergy/AdvReac Type Severity Reaction Status Date / Time No Known Allergies Allergy Verified 02/01/25 17:22 OB Exam Physical Exam Vital signs: Temp Pulse Resp BP Pulse Ox 97.9 F 89 18 111/62 98 02/01/25 21:07 02/01/25 20:07 02/01/25 16:52 02/01/25 20:07 02/01/25 17:46 Narrative: Alert and oriented. Normal heart rate and rhythm. Lungs clear no wheezes. Gravid abdomen. Gynecoid pelvis. Estimated weight 8 pounds. Vaginal exam admission was 80%, 1, -3. Vertex. Leaking clear fluid. Positive AmniSure. 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
[2025-02-01] MEDS: OXYTOCIN in NS 30 units 30 UNIT/500 ML BAG IV (22:45)
[2025-02-02] VITALS (419 sets, daily range): BP systolic 86–165; BP diastolic 47–97; PULSE 71–119; RESP 16–180; TEMP 36.4–37.5; O2SAT 68–100
[2025-02-02] MEDS: Ampicillin Inj 1,000 MG in SODIUM CHLORIDE 0.9% (Popper) 50 ML 50 MG IV ×6 (01:05→23:43)
[2025-02-02] MEDS: PROMETHAZINE INJ 25 MG/ML VIAL 12.5 MG IM (06:15)
[2025-02-02] MEDS: MEPERIDINE INJ 50 MG/ML VIAL 75 MG IM (06:17)
--- NOTE | 2025-02-02 08:12 | PD.LDPN ---
Documentation for date of: 02/02/25 OB Labor Progress Note Pain Control Pain control: tolerating well Pelvic Exam Dilation (cm): 2 Effacement (%): 80 station: -2 Amniotic membrane status: Ruptured Contractions Monitor mode: External Contraction frequency: 2-5 Contraction phase: Resting Contraction intensity: Mild Status status: Category l Assessment and Plan Pitocin rate (mU/min): 9 Assessment: induction ongoing Plan OB labor note: continuous present management CNM Management MD Consulted (describe details below): Yes
[2025-02-02] MEDS: GENTAMICIN/NS 80 MG IVPB 80 MG/50 ML PIGGYBACK 100 MG IV ×2 (11:56→20:27)
[2025-02-02] MEDS: fentaNYL CIT INJ 50 mCg/ML AMP 2ML 100 MCG IVP (11:57)
[2025-02-02] MEDS: RINGERS LACTATED 1000 ML 1,000 ML 100 ML IV (15:00)
--- NOTE | 2025-02-02 17:39 | PD.LDPN ---
Documentation for date of: 02/02/25 OB Labor Progress Note Pain Control Pain control: tolerating well and epidural Pelvic Exam Dilation (cm): 5-6 Effacement (%): 80 station: -2 Amniotic membrane status: Ruptured Contractions Monitor mode: Internal Contraction frequency: 2-4 Contraction phase: Resting Contraction intensity: Strong Intrauterine tone measurement: 175 Status status: Category ll Assessment and Plan Pitocin rate (mU/min): 12 Assessment: active labor Plan OB labor note: continuous present management CNM Management MD Consulted (describe details below): Yes
[2025-02-03] VITALS (69 sets, daily range): BP systolic 93–135; BP diastolic 43–94; PULSE 76–159; RESP 14–20; TEMP 36.6–37.8; O2SAT 76–98
--- NOTE | 2025-02-03 00:48 | PD.LDPN ---
Documentation for date of: 02/03/25 OB Labor Progress Note Pain Control Pain control: epidural Pelvic Exam Dilation (cm): 9 Effacement (%): 100 station: -1 Amniotic membrane status: Ruptured Contractions Monitor mode: Internal Contraction frequency: 2-3 Contraction phase: Resting Contraction intensity: Moderate Intrauterine tone measurement: 175 Status status: Category l Assessment and Plan Pitocin rate (mU/min): 17 Plan OB labor note: continuous present management CNM Management MD Consulted (describe details below): Yes
--- NOTE | 2025-02-03 01:24 | PD.LDPN ---
Documentation for date of: 02/03/25 OB Labor Progress Note Pain Control Pain control: epidural Pelvic Exam Dilation (cm): 10 Effacement (%): 100 station: 0 Amniotic membrane status: Ruptured Contractions Monitor mode: Internal Contraction frequency: 2-5 Contraction phase: Resting Contraction intensity: Moderate Intrauterine tone measurement: 175 Status status: Category l Assessment and Plan Pitocin rate (mU/min): 18 Assessment: induction ongoing CNM Management MD Consulted (describe details below): Yes
[2025-02-03] MEDS: FAMOTIDINE INJ 10 MG/ML VIAL 2 ML 20 MG IV (03:37)
[2025-02-03] MEDS: ceFAZolin/D5W 2 GM IV 2 GM/100 ML BAG IV (03:37)
[2025-02-03] MEDS: CITRIC ACID/SODIUM CITR 15 ML UDC (BICITRA) 30 ML PO (03:37)
--- NOTE | 2025-02-03 03:48 | PD.LDPN ---
Documentation for date of: 02/03/25 OB Labor Progress Note Pelvic Exam Dilation (cm): 10 Effacement (%): 100 station: 0 Amniotic membrane status: Ruptured Contractions Monitor mode: Internal Contraction frequency: 2-4 Contraction phase: Resting Contraction intensity: Moderate Intrauterine tone measurement: 175 Status status: Category l Assessment and Plan Comments: Failure to descend Delivery Informed consent obtained patient made aware of the risks, complications, alternatives and benefits of the proposed procedure and she agrees.
--- NOTE | 2025-02-03 04:53 | PD.LDDS ---
DS: Providers Provider Date of admission: 02/01/25 18:30 Primary care physician: Physician No Primary/Family Admitting Provider: Viky Hook MD (OB Clinic) Attending Provider on Admission: Gera Yanez MD Attending Provider on DC: Dhruv Steward MD Discharging Provider: Dhruv Steward MD DS: Diagnosis Discharge Diagnosis (1) Arrest of descent, delivered, current hospitalization: Status: Acute (2) Uterine atony, , current hospitalization: Status: Acute (3) delivery delivered: Status: Acute Problem List Completed Was Problem List Reviewed/Reconciled?: Yes Summary/Hosp Course Brief History: Need for weight eight 64-year-old 1 para 0 admit to labor and delivery with complaints of leaking fluid since 4 in the morning. Occasional contraction. Patient was first was seen at Dr. Johnson's office for care. First visit 8 weeks. Last. May 11, 2024. This gave due date February 15, 2025. First ultrasound in June was 8 weeks and is changed due date to February 09, 2025. Patient then had a 25-week ultrasound in September that confirmed dates. Denies social habits. Denies surgery. Denies chronic illness. Patient had a history of abnormal 1 hour that was over 185. So she has been treated for GDM with diet. Glucose has been in good control. And patient has been compliant with weekly NST and BPP. Reports good movement. Patient is O+, antibody screen negative, RPR nonreactive, rubella immune, hepatitis B negative, hep C negative, HIV negative, GC and Chlamydia were negative. aFP was negative. NIPT negative. Carrier screens negative. And GBS was not ran. Peripartum Data Delivery Method: Low Transverse Episiotomy Description: None Procedures: Procedures Operation Date: 02/03/25 03:30 <No data on this case meets the specified criteria> Time Spent with Patient Time attestation: Total time spent providing and/or coordinating discharge services: Exam Vital Signs Temp Pulse Resp BP Pulse Ox O2 Del Method 98.4 F 141 H 18 105/53 L 97 Room Air 02/03/25 00:30 02/03/25 03:24 02/02/25 19:28 02/03/25 03:24 02/03/25 03:37 02/02/25 11:30 Discharge Plan Plan Patient Disposition: HOME (Self Care) Patient condition on transfer: Stable Prescriptions/Referrals Prescriptions/Med Rec: New hydrocodone-acetaminophen 5-325 mg tablet 1 tab PO Q6H MDD 4 PRN (Reason: pain) Qty: 30 0RF ibuprofen 600 mg tablet 600 mg PO Q6H PRN (Reason: pain) Qty: 30 0RF Continued PNV cmb#95-ferrous fumarate-FA [] 28 mg iron- 800 mcg tablet 1 tab PO DAILY Patient Comments: TAKE 1 TABLET BY MOUTH EVERY DAY Discontinued metformin 500 mg tablet 500 mg PO DAILY Patient Comments: TAKE 1 TABLET BY MOUTH EVERY DAY Referrals: No Primary/Family,Physician [Primary Care Provider] - Patient/Caregiver Discharge Instructions Discharge Activity: activity as tolerated Other Discharge Activity Instructions:: Follow up office 1 week. Education Materials: C Section Dc Print Language: British Stand Alone Forms: [employer] Award Info., Patient Portal Info Letter Planned Discharge Date 02/05/25
--- NOTE | 2025-02-03 04:54 | ESOP_ITS ---
Operative Note - AWNING CRAFTSMAN Procedure Date of procedure: 02/03/25 Procedure Performed: Primary low-transverse section Via Pfannenstiel skin incision Indication: Intrauterine at 38 weeks 6 days Active labor Prolonged rupture of membranes Arrest of descent Pre-Op diagnosis: Intrauterine at 38 weeks 6 days Active labor Prolonged rupture of membranes Arrest of descent Post-Op diagnosis: Intrauterine at 38 weeks 6 days Active labor Prolonged rupture of membranes Arrest of descent Uterine atony Anesthesia type: Spinal Procedure description: After proper informed consent was obtained and the patient made aware the risk complication alternative benefits of the proposed procedure she was taken the operating room where she underwent induction of spinal anesthesia. She was prepped and draped in the you sterile fashion. A timeout was performed. A Pfannenstiel skin incision was made. The incision was extended to the fascia. The inferior aspect of the fascial incision was grasped with a Elizabeth clamps elevated the underlying rectus muscle dissected off with the Bovie. The rectus muscles were in the midline. The incision was extended superiorly and inferiorly with good visualization of the bladder. The vesicouterine peritoneum was incised transversely and the bladder flap created digitally. The bladder blade was inserted. The low transverse incision was extended bilaterally the 's head delivered the mouth and nose suctioned with the bulb suction the cord was clamped and cut. The infant was handed off the waiting pediatric staff. Cord blood was obtained. Placenta was then removed manually and the uterus exteriorized and cleared of all clots and debris. The uterus was initially atonic but responded to uterotonic's in the form of Pitocin and Methergine and she was given TXA. In addition the patient received Cytotec before going to her room. The uterine cavity was copiously irrigated with saline the uterine incision was closed with #1-0 chromic suture in a running interlocking fashion. A second layer of the same suture was used imbricate the first layer and obtain excellent hemostasis. The uterus was returned to the abdomen. The gutters were cleared of all clots and debris. The fundus was firm. The peritoneum was closed with 0 chromic catgut suture in a running fashion. The rectus muscle was closed with 0 chromic in a running fashion. The fascia was closed with 0 Vicryl beginning at each angle and ending at the center in a running fashion. The subcutaneous tissue was irrigated with normal saline solution found to be hemostatic and closed with 2-0 chromic catgut suture. The skin incision was closed with 4-0 Monocryl. A Dermabond pernio dressing was applied and covered with a sterile pressure dressing. She tolerated the procedure well counts were correct I discussed with the patient the nature of her condition and the intraoperative findings expectation for recovery all questions answered. Estimated blood loss (ml): 700 Findings: Live male Apgars see RN notes Placenta removed complete intact Uterus initially atonic but responded to uterotonic's Ovaries and fallopian tubes grossly within normal limits Clear amniotic fluid Complications: other (Uterine atony) Surgical staff interpreter Neymar Guerrero, ABIODUN operator/assistant foreman Kimmy Pascale BUILDING ILLUMINATING ENGINEER Operation Date: 02/03/25 03:30 <No data on this case meets the specified criteria> Diagnosis Discharge Diagnosis (1) Arrest of descent, delivered, current hospitalization: Status: Acute (2) Uterine atony, , current hospitalization: Status: Acute (3) delivery delivered: Status: Acute Problem List Completed Was Problem List Reviewed/Reconciled?: Yes
--- NOTE | 2025-02-03 06:07 | PD.LDDELS ---
Data (Ortiz) Data Hx Section: No : 1 Term: 0 : 0 Livin Abortions: Spontaneous & Theraputic: 0 Delivery Data (Ortiz) Labor Data Initiation of labor: Induction Induction/Augmentation Agent: Pitocin ROM date: 02/01/25 ROM time: 04:00 Amniotic membrane rupture type: Artificial Amniotic fluid description: Clear Delivery Data EDC: 02/11/25 EDC calculated by:: LMP/early US confirmation Onset of labor date: 02/02/25 Onset of labor time: 16:00 Complete dilation date: 02/03/25 Complete dilation time: 01:30 [place]a delivery date: 02/03/25 [place]a delivery time: 04:14 Gestational age (weeks): 38 Gestational age (days): 6 Placenta delivery date: 02/03/25 Placenta delivery time: 04:15 Stage 1 total time: Labor - Stage 1 Duration 9 hours and 30 minutes Delivered by: Dhruv Steward Delivery nurse: angela anton nurse: gwendolyn matute Electronics Engineering Professor at delivery: Yes Support person(s) at delivery: FOB Other staff at delivery: see operative note Delivery Method Delivery method: Low Transverse Presentation: Vertex Anesthesia Type Anesthesia Type: Spinal and Epidural Anesthesia type: Spinal Placenta Placenta delivery description: Manual Removal Placenta Disposition: Sent to Pathology Cord blood sent to lab: Yes cord blood collection: Cord Blood Type Episiotomy Episiotomy description: None EBL Estimated blood loss (ml): 800 Umbilical Cord cord description: 3 Vessels Complications Complications: Uterine atony Data (Ortiz) Pequea Data order: 1 's gender: Male weight (gms): 5 lb 11.007 oz Weight (pounds): 5 lbs and 11.0 ozs length: 18.5 in 1 minute: 8 5 minutes: 9
[2025-02-03] MEDS: RINGERS LACTATED 1000 ML 1,000 ML 100 ML IV (06:55)
[2025-02-03] MEDS: AMPICILLIN/SULBAC INJ 3 GM in SODIUM CHLORIDE 0.9% (POP) 100 ML IV ×3 (06:55→23:34)
[2025-02-03] MEDS: ACETAMINOPHEN 325 MG TABLET 650 MG PO (07:33)
[2025-02-03] MEDS: DOCUSATE SOD 100 MG CAPSULE PO (08:01)
--- NOTE | 2025-02-03 10:44 | PC.NURSE ---
Noted Unasyn dose was clamped upon assessment not running. Therefore pt never received the 0600 am dose. Notified pharmacist Farzaneh Per pharmacist skip the 1200 dose and continue to run the 0600 dose and hang dose at 1800.
[2025-02-03 10:59] LABS: Basophils % (Auto) 0 % (0-2.5); Eosinophils % (Auto) 0 % (0-10); Hematocrit 32.7 % (36.0-46.0); Hemoglobin 12.1 g/dL (12.0-16.0); Immature Granulocytes % (Auto) 0 % (0-0); Immature Granulocytes Auto 0.05 Thou/mm3 (0.00-0.00); Lymphocytes # (Auto) 0.9 Thou/mm3 (1.0-4.8); Lymphocytes % (Auto) 6 % (10-50); Mean Corpuscular Hemoglobin 32.3 pg (25.0-35.0); Mean Corpuscular Volume 87 fL (80-100); Monocytes # (Auto) 0.7 Thou/mm3 (0.0-0.8); Monocytes % (Auto) 5 % (0-12); Neutrophils % (Auto) 89 % (37-80); Nucleated Red Blood Cell % 0 /100 WBC (0); Platelet Count 166 Thou/mm3 (140-440); RDW Standard Deviation 42.1 fL (36.4-46.3); Red Blood Count 3.75 Miln/mm3 (4.00-5.20); White Blood Count 14.7 Thou/mm3 (3.6-11.0)
--- NOTE | 2025-02-03 12:05 | PC.LAC ---
Mom pumped, first time, 20 minutes. For stimulation and eventually for collection. Collected .5 ml in syringe, gave instructions on how to feed to baby. Explained good in room temperature for 4 hours. Mom to pump every 2 hours including at night for 20 minutes. mom understood
[2025-02-03] MEDS: HYDROcodone/APAP 5/325 TABLET 1 TAB PO ×2 (13:23→22:25)
[2025-02-03] MEDS: OXYTOCIN in NS 20 units 20 UNIT/1,000 ML BAG 125 UNIT IV (16:35)
[2025-02-03] MEDS: IBUPROFEN TAB 400 MG TABLET 800 MG PO (17:57)
[2025-02-04 04:10] VITALS: BP 98/63; PULSE 91; RESP 16; TEMP 36.4; O2SAT 96
[2025-02-04] MEDS: AMPICILLIN/SULBAC INJ 3 GM in SODIUM CHLORIDE 0.9% (POP) 100 ML IV ×3 (05:38→17:38)
[2025-02-04] MEDS: SIMETHICONE 80 MG CHEW PO (05:39)
--- NOTE | 2025-02-04 08:05 | ESPR_ITS ---
Subjective Subjective Interval history: Doing well. Patient is ambulating in the bathroom to void. Passing gas. Taking ibuprofen for pain. Denies dizziness. Denies signs or symptoms of infection. Postop day 1 Exam Vital Signs Temp Pulse Resp BP Pulse Ox O2 Del Method 97.6 F 91 16 98/63 96 Room Air 02/04/25 04:10 02/04/25 04:10 02/04/25 04:10 02/04/25 04:10 02/04/25 04:10 02/04/25 04:10 Narrative Exam Vital signs stable afebrile. Breasts are soft. Fundus is firm well involuted to below the umbilicus. Telfa dressing and tape was removed today from the incision. Incision looks clean dry and well-approximated. No signs of infection. No wound redness. Nontender. Small lochia. Negative Homans' sign. 2+ DTRs. Positive bowel sounds Objective Labs 02/03/25 10:50 Labs: Laboratory Results - last 24 hr 02/03/25 10:50 WBC 14.7 H D RBC 3.75 L Hgb 12.1 Hct 32.7 L MCV 87 MCH 32.3 MCHC 37.0 RDW Std Deviation 42.1 Plt Count 166 D Neut % (Auto) 89 H Lymph % (Auto) 6 L [place] % (Auto) 5 Eos % (Auto) 0 Baso % (Auto) 0 Neut # (Auto) 13.0 H Lymph # (Auto) 0.9 L [place] # (Auto) 0.7 Eos # (Auto) 0.0 Baso # (Auto) 0.0 Immature Gran # (Auto) 0.05 H Absolute Nucleated RBC 0.00 Immature Gran % 0 Nucleated RBC % 0 Assessment & Plan Problem List (1) Arrest of descent, delivered, current hospitalization: Status: Acute (2) Uterine atony, , current hospitalization: Status: Acute (3) delivery delivered: Problem details: PO day 1 Status: Acute Assessment Comment Assessment comment: Postop day 1 Plan Comment Plan Comment: Remove tape and Telfa from incision. Advised patient to get up and move and walk around throughout the day. Advised patient to take medication an hour before walking. Increase fluids. Discussed signs symptoms of infection with patient. And patient will be for possible discharge today. Time Spent With Patient Time: Total time spent is greater than 50% in coordination of care (as documented) at patient's floor/unit and/or counseling patient:
--- NOTE | 2025-02-04 08:10 | ESPR_ITS ---
Subjective Subjective Interval history: The patient is a 34-year-old G1 now P1 001 status post primary by Dr Steward. The patient was ruptured for 48 hours. She did get to complete and pushed about an hour and could not bring the baby down. The baby was only about 5 and half pounds. Today she is resting comfortably in bed eating breakfast. She was on Unisyn for 24 hours with a T max of 100.1 after delivery at about 6 in the morning yesterday. The plan will be to discontinue this. She would like to go home tonight if possible. She was told the patient she needs to get up to shower and walk around take pain meds by mouth. We will check her temperature, if she is stable we will be able to discharge her home later tonight. I did order another CBC this morning. She is working on breast-feeding. Exam Vital Signs Temp Pulse Resp BP Pulse Ox O2 Del Method 97.6 F 91 16 98/63 96 Room Air 02/04/25 04:10 02/04/25 04:10 02/04/25 04:10 02/04/25 04:10 02/04/25 04:10 02/04/25 04:10 Narrative Exam Patient is up resting comfortably in bed eating breakfast. In no apparent distress. Abdomen is soft slightly distended incision is dressed and dry. Extremities show 1+ edema no erythema. Objective Labs 02/03/25 10:50 Labs: Laboratory Results - last 24 hr 02/03/25 10:50 WBC 14.7 H D RBC 3.75 L Hgb 12.1 Hct 32.7 L MCV 87 MCH 32.3 MCHC 37.0 RDW Std Deviation 42.1 Plt Count 166 D Neut % (Auto) 89 H Lymph % (Auto) 6 L [place] % (Auto) 5 Eos % (Auto) 0 Baso % (Auto) 0 Neut # (Auto) 13.0 H Lymph # (Auto) 0.9 L [place] # (Auto) 0.7 Eos # (Auto) 0.0 Baso # (Auto) 0.0 Immature Gran # (Auto) 0.05 H Absolute Nucleated RBC 0.00 Immature Gran % 0 Nucleated RBC % 0 Assessment & Plan Problem List (1) Arrest of descent, delivered, current hospitalization: Problem details: Patient is doing well today. She would like to go home later tonight. We will recheck a CBC now. Monitor for fevers. Patient to get up walk take pain meds by mouth. If she is stable consider discharge later this afternoon. Status: Acute (2) Uterine atony, , current hospitalization: Status: Acute (3) delivery delivered: Problem details: PO day 1 Status: Acute Time Spent With Patient Time: Total time spent is greater than 50% in coordination of care (as documented) at patient's floor/unit and/or counseling patient:
[2025-02-04 08:15] VITALS: BP 108/73; PULSE 97; RESP 16; TEMP 36.7; O2SAT 98
[2025-02-04] MEDS: DOCUSATE SOD 100 MG CAPSULE PO (08:20)
[2025-02-04] MEDS: ENOXAPARIN SOD INJ 40 MG/0.4 ML SYRINGE SC (08:20)
[2025-02-04 08:31] LABS: Basophils % (Auto) 0 % (0-2.5); Eosinophils % (Auto) 0 % (0-10); Hematocrit 31.6 % (36.0-46.0); Hemoglobin 11.3 g/dL (12.0-16.0); Immature Granulocytes % (Auto) 0 % (0-0); Immature Granulocytes Auto 0.03 Thou/mm3 (0.00-0.00); Lymphocytes % (Auto) 10 % (10-50); Mean Corpuscular HGB Conc 35.8 g/dl (31.0-37.0); Mean Corpuscular Volume 90 fL (80-100); Monocytes # (Auto) 0.7 Thou/mm3 (0.0-0.8); Monocytes % (Auto) 8 % (0-12); Neutrophils # (Auto) 7.7 Thou/mm3 (1.8-7.7); Neutrophils % (Auto) 81 % (37-80); Nucleated Red Blood Cell % 0 /100 WBC (0); Platelet Count 155 Thou/mm3 (140-440); RDW Standard Deviation 44.6 fL (36.4-46.3); Red Blood Count 3.53 Miln/mm3 (4.00-5.20); White Blood Count 9.5 Thou/mm3 (3.6-11.0)
[2025-02-04] MEDS: HYDROcodone/APAP 5/325 TABLET 1 TAB PO (12:16)
[2025-02-04 15:40] VITALS: BP 104/64; PULSE 85; RESP 15; O2SAT 97
[2025-02-04] MEDS: IBUPROFEN TAB 400 MG TABLET 800 MG PO (16:54)
[2025-02-04 19:14] VITALS: BP 113/76; PULSE 84; RESP 17; TEMP 36.7; O2SAT 97
[2025-02-05 03:32] VITALS: BP 116/77; PULSE 63; RESP 18; TEMP 36.8; O2SAT 98
[2025-02-05] MEDS: IBUPROFEN TAB 400 MG TABLET 800 MG PO (06:05)
--- NOTE | 2025-02-05 07:45 | PD.LDPPPRG ---
Subjective Subjective Interval history: Delivery type: Patient doing well this morning. No acute complaints. Ambulating, tolerating p.o. and voiding without difficulty. HTN/Pre-Eclampsia screen: No chest pain, shortness of breath, headache, visual changes, epigastric or right upper quadrant pain. Breast-feeding, lochia diminishing. Bowel: Flatus+/ BM+ Exam Vital Signs Temp Pulse Resp BP Pulse Ox O2 Del Method 98.3 F 63 18 116/77 98 Room Air 02/05/25 03:32 02/05/25 03:32 02/05/25 03:32 02/05/25 03:32 02/05/25 03:32 02/05/25 03:32 Constitutional Constitutional: no acute distress Routine HEENT Exam Head: Present normocephalic and atraumatic Eye: Present EOMI and PERRL ENT: Present mucous membranes moist Routine Neck Exam Neck: Present supple and trachea midline Routine Respiratory Exam Respiratory: Present chest non-tender, lungs clear, normal breath sounds and no resp distress Routine Cardiovascular Exam Cardiovascular: Present RRR Routine Abdominal Exam Abdominal: Present soft and normoactive bowel sounds Routine Extremities Exam Extremities: Present full ROM Routine Skin Exam Skin: Present intact, dry and warm Routine Neurological Exam Neurological: Present alert, oriented X3 and CN II-XII intact Routine Psychiatric Exam Psychiatric: Present normal affect and normal thought process Objective Labs 02/04/25 07:39 Labs: Laboratory Results - last 24 hr 02/04/25 07:39 WBC 9.5 D RBC 3.53 L Hgb 11.3 L Hct 31.6 L MCV 90 MCH 32.0 MCHC 35.8 RDW Std Deviation 44.6 Plt Count 155 Neut % (Auto) 81 H Lymph % (Auto) 10 [place] % (Auto) 8 Eos % (Auto) 0 Baso % (Auto) 0 Neut # (Auto) 7.7 Lymph # (Auto) 1.0 [place] # (Auto) 0.7 Eos # (Auto) 0.0 Baso # (Auto) 0.0 Immature Gran # (Auto) 0.03 H Absolute Nucleated RBC 0.00 Immature Gran % 0 Nucleated RBC % 0 Assessment & Plan Problem List (1) Arrest of descent, delivered, current hospitalization: Status: Acute (2) Uterine atony, , current hospitalization: Status: Acute (3) delivery delivered: Status: Acute Assessment and plan: PPD/POD#2 1. Continue routine care 2. Transition to PO meds. 3. Encourage to ambulate/ breast-feed 4. Anticipate discharge home today. Time Spent With Patient Time: Total time spent is greater than 50% in coordination of care (as documented) at patient's floor/unit and/or counseling patient:
--- NOTE | 2025-02-05 07:46 | ESDS_ITS ---
DS: Providers Provider Date of admission: 02/01/25 18:30 Primary care physician: Physician No Primary/Family Admitting Provider: Viky Hook MD (OB Clinic) Attending Provider on Admission: Gera Yanez MD Consults: 02/03/25 05:32 Referral Routine Comment: Attending Provider on DC: Gera Yanez MD Discharging Provider: Gera Yanez MD DS: Diagnosis Discharge Diagnosis (1) delivery delivered: Status: Acute (2) Uterine atony, , current hospitalization: Status: Acute (3) Arrest of descent, delivered, current hospitalization: Status: Acute Problem List Completed Was Problem List Reviewed/Reconciled?: Yes Summary/Hosp Course Brief History: Need for weight eight 64-year-old 1 para 0 admit to labor and delivery with complaints of leaking fluid since 4 in the morning. Occasional contraction. Patient was first was seen at Dr. Johnson's office for care. First visit 8 weeks. Last. May 11, 2024. This gave due date February 15, 2025. First ultrasound in June was 8 weeks and is changed due date to February 09, 2025. Patient then had a 25-week ultrasound in September that confirmed dates. Denies social habits. Denies surgery. Denies chronic illness. Patient had a history of abnormal 1 hour that was over 185. So she has been treated for GDM with diet. Glucose has been in good control. And patient has been compliant with weekly NST and BPP. Reports good movement. Patient is O+, antibody screen negative, RPR nonreactive, rubella immune, hepatitis B negative, hep C negative, HIV negative, GC and Chlamydia were negative. aFP was negative. NIPT negative. Carrier screens negative. And GBS was not ran. Peripartum Data Delivery Method: Low Transverse Episiotomy Description: None Procedures: Procedures Operation Date: 02/03/25 03:30 Actual Procedure Side Surgeon p in OB Not Applicable Dhruv Steward MD Time Spent with Patient Time attestation: Total time spent providing and/or coordinating discharge services: Exam Vital Signs Temp Pulse Resp BP Pulse Ox O2 Del Method 98.3 F 63 18 116/77 98 Room Air 02/05/25 03:32 02/05/25 03:32 02/05/25 03:32 02/05/25 03:32 02/05/25 03:32 02/05/25 03:32 Discharge Plan Plan Patient Disposition: HOME (Self Care) Patient condition on transfer: Stable Prescriptions/Referrals Prescriptions/Med Rec: New hydrocodone-acetaminophen 5-325 mg tablet 1 tab PO Q6H MDD 4 PRN (Reason: pain) Qty: 30 0RF ibuprofen 600 mg tablet 600 mg PO Q6H PRN (Reason: pain) Qty: 30 0RF Continued PNV cmb#95-ferrous fumarate-FA [] 28 mg iron- 800 mcg tablet 1 tab PO DAILY Patient Comments: TAKE 1 TABLET BY MOUTH EVERY DAY Discontinued metformin 500 mg tablet 500 mg PO DAILY Patient Comments: TAKE 1 TABLET BY MOUTH EVERY DAY Referrals: Gera Yanez MD [Physician] - No Primary/Family,Physician [Primary Care Provider] - Patient/Caregiver Discharge Instructions Discharge Activity: activity as tolerated Other Discharge Activity Instructions:: Follow up office 1 week. Education Materials: After Delivery [place] Concerns, After a , C Section Dc Print Language: Divehi Stand Alone Forms: [employer] Award Info., Patient Portal Info Letter, DC from Surgery Discharge Order Discharge Orders: Discharge (Routine); Ordered 02/05/25 Ordered By: Gera Yanez Planned Discharge Date 02/05/25
[2025-02-05 08:00] VITALS: BP 123/81; PULSE 89; RESP 18; TEMP 36.7; O2SAT 98
[2025-02-05] MEDS: DOCUSATE SOD 100 MG CAPSULE PO (09:08)
[2025-02-05] MEDS: ENOXAPARIN SOD INJ 40 MG/0.4 ML SYRINGE SC (09:09)
== END 2025-02-05 12:43 | disposition home or self-care (01) | DRG 788 ==
LOC: S4SX 02-03 02:43 → S4NX 02-03 03:59
PROVIDERS: Advanced Practice Midwife; Specialist; Admitting Provider Obstetrics & Gynecology; Visit Provider Obstetrics & Gynecology
PROC: 10D00Z1 Extraction of Products of Conception, Low, Open Approach (ICD-10-PCS; CPT 59514; principal; 2025-02-03 03:15)
DX: O24.420 Gestational diabetes mellitus in childbirth, diet controlled (principal); Z37.0 Single live birth; Z3A.38 38 weeks gestation of pregnancy; O62.1 Secondary uterine inertia
CPT/HCPCS: 36415; 59409; 76815; 84112; 85025; 86780; 86850; 86900; 86901; 94762; A4314; A4649; J0290; J0295; J0689; J1580; J1650; J2175; J2210; J2274; J2371; J2550; J2590; J2795; J3010; J3490; J7050; J7120; S0191; A9270; J2270

== ENCOUNTER 2025-02-10 15:16 | Outpatient (AMB) | payer BC, SELFPAY ==
[2025-02-10 15:45] VITALS: BP 122/82; PULSE 76; RESP 18; TEMP 36.7; O2SAT 97
--- NOTE | 2025-02-10 15:45 | AMBOBPPN_ITS ---
Vital Signs 02/10/25 15:45 Weight 95.311 kg Weight Measurement Method Standing Scale BP 122/82 Blood Pressure Source Automatic Cuff Blood Pressure Location Right Upper Arm Position Sitting Respiration 18 Pulse 76 Pulse Source Monitor Temp 98.1 F Temp Source Oral Pulse Oximetry (%) 97 Oxygen Delivery Method Room Air Allergies/Home Meds Allergies & Medications Allergies No Known Allergies Allergy (Verified 02/10/25 15:46) Medication Reconciliation vit no.95-ferrous fumarate 28 mg-folic acid 800 mcg tablet () 1 tab PO DAILY 02/01/25 [History Confirmed 02/10/25] hydrocodone 5 mg-acetaminophen 325 mg tablet 1 tab PO Q6H PRN pain #30 tabs 02/03/25 [Rx Confirmed 02/10/25] ibuprofen 600 mg tablet 600 mg PO Q6H PRN pain #30 tabs 02/03/25 [Rx Confirmed 02/10/25] miscellaneous medical supply #1 ea 02/10/25 [Rx] Intake Visit Data Collection New Patient or Established: Established Patient (seen at [facility] within 3 years) Reason for Visit:: POST Seen by Clinical Staff ONLY (RN/MA): No Laborer Powerhouse Required: No Do You Feel Safe at Home: Yes Authorities Contacted: N/A PCP or OBGYN visit in last 3 months: Yes Hx Now: No Are you currently on any form of Control: No Pain Present Currently: No Pain Scale Used: [place]-Figueroa/Numerical Pain scale:: 0 Smoking Status Smoking Status: Never smoker 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: Past Medical History Past Medical History: No Hx Neurological Disorders, No Hx Cardiac Disorders, No Hx Cancer, No Hx Blood Disorders, No Hx Gastrointestinal Disorders, No Hx Renal Disease, No Hx Diabetes Mellitus Type 1 and No Hx Diabetes Mellitus Type 2 Questionnaires Covid-19 Vaccine Questionnaire Has patient been vacinated for Covid-19 Have you been vacinated for Covid-19: Yes Social History Living Situation History Lives With: Family Housing: House Tobacco History Smoking Status: Never smoker Second Hand Smoke Exposure: No Alcohol History Alcohol Intake: Never Alcohol Intake Frequency: holidays/special occasions only Domestic Abuse History Do You Feel Safe at Home: Yes EPDS - PP Depression Screening [place] Pospartum Depression Screen I have been able to laugh and see the funny side of things: (0) As much as I always could I have looked forward with enjoyment to things: (0) As much as I ever did I have blamed myself unnecessarily when things went wrong: (0) No, never I have been anxious or worried for no good reason: (0) No, not at all I have felt scared or panicky for no very good reason: (0) No, not at all Things have been getting on top of me: (0) No, I have been coping as well as ever I have been so unhappy that I have had difficulty sleeping: (0) No, not at all I have felt sad or miserable: (0) No, not at all I have been so unhappy that I have been crying: (0) No, never The thought of harming myself has occurred to me: (0) Never Total Score: EPDS Score: Referral is indicated for score of 9 or more, suicidal, or if p ga believes patient is depressed regardless of score.: 0 EPDS completed yes Care OB Visit Log OB Flowsheet Initial Weight: Not Recorded Date -?-?-?-?-?-?-?-?-?-?-?-?- EGA Weight BP Alb Glu CTX Pres Fundal ht FHR Mov Dilation Station Effacement Hx Notes Visit Note 01/07/25 -?-?-?-?-?-?-?-?-?-?-?-?- 35w 2d 99.507 kg 106/75 absent cephalic 146 active 34 yo IUP 35 week by 8 week sono for OB transfer. GDM on metformin 500mg Q HS, cheks BS 4 x dailt, reports fasting over 100 usually, depening on diet. patient had stopped taking metformin for several days. fetus active, still working, no labor complaints, schedule MFM appointment for growth, continue metformin 500 q HS, start weekly nst/bpp, fkc bid, I discussed diet and fkc, walk 40 min daily. rtc 2 week, gbs nv 01/14/25 -?-?-?-?-?-?-?-?-?-?-?-?- 36w 2d 99.337 kg 115/76 absent cephalic 36 145 active GDM on Metformin 500 qhs. reports Improved compliance with GDM diet. reviewed BS on ap. fasting under 100 :85% of the time. otherwise BS after meals are at goal. patient walk 1 hr daily. reports good FM and compliant with FKC bid. week NST/BPP started. MFM pending/was ordered urgent GBS t madhavi. GBS today.. continue FKC bid . review labor precaution. reviewed diet and compliance, continue to track sugars and testing, continue week NST/BPP. patient will call [facility] for appointment. rtc 1 week 01/20/25 -?-?-?-?-?-?-?-?-?-?-?-?- 37w 1d 99.45 kg 120/84 at 37w1d with gestational diabetes on metformin, presents for routine care. Reports occasional elevated fasting glucose (102?112 mg/dL), but overall self-monitoring okay. Baby active in AM and postprandially, less so throughout day. Complains of increased numbness in arms/hands this week, consistent with carpal tunnel. Transferred care in 3rd trimester; GBS swab completed last visit. NSTs ongoing weekly. FHT 147 bpm. Plan: Schedule ultrasound for growth Book 39w induction date per GDM protocol (patient prefers to avoid but counseled on risks) Continue metformin 500mg qHS and SMBG Continue weekly NSTs Discuss labor plan after ultrasound precautions reviewed 01/28/25 -?-?-?-?-?-?-?-?-?-?-?-?- 38w 2d 100.698 kg 115/78 absent breech 37 145 active 38wk2 with GDM. diet and metformin 500 q hs. reports sugars at goal. fasting below 95. walks 1hr/day. fetus active. compliant with fkc bid. Patient refused IOL at 39 week. agrees to 40 week IOL. discussed procedure and why early IOL is needed discuss labor precaution, fkc bid, continue to monitor BS 4 x/day. continue to log sugars. week nst bpp. continue metformin 500 qhs. labor precaution. rtc 1 week obc discuss labor precaution, fk c bid, continue to monitor BS 4 x/day. continue to log sugars. week nst bpp. continue metformin 500 qhs. labor precaution. rtc 1 week obc. IOL 02/09 SHARON Calculator Estimated Delivery Date Method Current WG Current Estimate 02/09/25 Ultrasound #1 40w 2d Other Estimates 02/15/25 LMP (Certain) 39w 3d 01/30/25 Ultrasound #2 41w 5d Notes Visit Date: 01/07/25 Last Updated by: Madelin Viveros CNM 34 yo , GDM, metformin 500 Qhs. 1 hr gt and 3hr gtt high. RPR:Nr, , GC/CT-,O+,abs-, HBSAG-,HIV-,HC-, AFP<NIPT, carrier neg. LMP: 05/11/24. EDC 02/13/25. sharon by 8.2 wk sono: 02/09/25, 07/02/24:8w2 HPI Interval History: Patient reports overall good recovery 7 days after section performed on February 03, 2025, but notes persistent swelling, which she describes as still like really swollen. She is currently her without reported issues. Patient mentions experiencing numbness in her fingers, consistent with carpal tunnel syndrome that she had during . She is adhering to postoperative care instructions and has been walking to help with recovery. Patient inquires about wearing compression garments and requests a prescription for an abdominal binder, which she did not receive from the hospital. Veronica reports no constipation or other significant postoperative complications. She is able to perform basic self-care activities but is still limited in her physical capabilities due to the recent surgery. Patient appears to be progressing well in her recovery, with no mention of mental health concerns or significant psychosocial stressors at this time. She is a 34-year-old 1 para 1 female who delivered via section on February 03, 2025. She has a history of carpal tunnel syndrome during . Patient is currently her and walking for recovery. 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 Incision appears to be closing well and looks good overall. No signs of infection or complications noted. Office Procedures OB Clinic LOC & Office Proc's Nursing/Assessment Patient Status: Established Patient OB Clinic Nursing Assessment: Medication Reconciliation, Update PMH in EMR and Vital Signs OB Clinic Coordination of Care: Complex Care and Chronic Disease 1-5, Consent,records obtained, informed consent, Education Simp Pt/Fam, Lab and Imaging orders, Results/Orders obtained and Staff clarify orders Established Patient Charge Established Patient Point Assignment: 105 Post Follow-up Visit Post Follow up Visit: Yes Assessment & Plan Diagnosis / Problem List (1) delivery delivered: Status: Acute (2) care following delivery: Status: Acute Plan Status post section Plan: - Prescribe abdominal binder for support during recovery. - Encourage use of compression garments if available. - Advise on incision care: showering allowed, patting dry recommended. - Recommend increased activity as tolerated to aid in fluid reduction. - Advise on gradual return to normal activities: - Driving and store visits allowed after 1 week - Weight lifting up to 30 pounds allowed after 1 week - Full return to normal activities after 1 month - Dietary recommendations: - Normal diet with reduced salt intake - Increase water intake to help reduce fluid retention - Follow-up appointment scheduled in 2 weeks for intermediate check.
== END 2025-02-10 16:07 | disposition home or self-care (01) ==
LOC: HODSOBC 15:16
PROVIDERS: Supervising Provider Obstetrics & Gynecology; Visit Provider Obstetrics & Gynecology
DX: Z39.2 Encounter for routine postpartum follow-up (principal); Z39.1 Encounter for care and examination of lactating mother

== ENCOUNTER 2025-02-25 14:04 | Outpatient (AMB) | payer BC, SELFPAY ==
[2025-02-25 14:13] VITALS: BP 109/75; PULSE 82; RESP 17; TEMP 36.6; O2SAT 96
--- NOTE | 2025-02-25 14:13 | AMB.OBVISIT ---
Vital Signs 02/25/25 14:13 Weight 92.703 kg Weight Measurement Method Standing Scale BP 109/75 Blood Pressure Source Automatic Cuff Blood Pressure Location Right Upper Arm Position Sitting Respiration 17 Pulse 82 Pulse Source Monitor Temp 97.8 F Temp Source Temporal Artery Scan Pulse Oximetry (%) 96 Oxygen Delivery Method Room Air Allergies/Home Meds Allergies & Medications Allergies No Known Allergies Allergy (Verified 02/25/25 14:15) Intake Visit Data Collection New Patient or Established: Established Patient (seen at [facility] within 3 years) Reason for Visit:: Consent obtained for Telemed Visit: No Seen by Clinical Staff ONLY (RN/MA): No 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 1. Little interest or pleasure in doing things: not at all PHQ-9 8. Moving or speaking so slowly that other people could have noticed? - Or the opposite - being so fidgety or restless that you have been moving around a lot more than usual: not at all Source: Developed by Drs. Boaz Bledsoe, Cinda Balbuena, Joe Nolen and colleagues, with an educational feroz from [email or web address]. 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 GDM on metformin 500mg Q HS, cheks BS 4 x dailt, reports fasting over 100 usually, depening on diet. patient had stopped taking metformin for several days. fetus active, still working, no labor complaints, schedule MFM appointment for growth, continue metformin 500 q HS, start weekly nst/bpp, fkc bid, I discussed diet and fkc, walk 40 min daily. rtc 2 week, gbs nv 01/14/25 <del>?</del> 36w 2d 99.337 kg 115/76 absent cephalic 36 145 active GDM on Metformin 500 qhs. reports Improved compliance with GDM diet. reviewed BS on ap. fasting under 100 :85% of the time. otherwise BS after meals are at goal. patient walk 1 hr daily. reports good FM and compliant with FKC bid. week NST/BPP started. MFM pending/was ordered urgent GBS today. GBS today.. continue FKC bid. review labor precaution. reviewed diet and compliance, continue to track sugars and testing, continue week NST/BPP. patient will call [facility] for appointment. rtc 1 week 01/20/25 <del>?</del> 37w 1d 99.45 kg 120/84 at 37w1d with gestational diabetes on metformin, presents for routine care. Reports occasional elevated fasting glucose (102?112 mg/dL), but overall self-monitoring okay. Baby active in AM and postprandially, less so throughout day. Complains of increased numbness in arms/hands this week, consistent with carpal tunnel. Transferred care in 3rd trimester; GBS swab completed last visit. NSTs ongoing weekly. FHT 147 bpm. Plan: Schedule ultrasound for growth Book 39w induction date per GDM protocol (patient prefers to avoid but counseled on risks) Continue metformin 500mg qHS and SMBG Continue weekly NSTs Discuss labor plan after ultrasound precautions reviewed 01/28/25 <del>?</del> 38w 2d 100.698 kg 115/78 absent breech 37 145 active 38wk2 with GDM. diet and metformin 500 q hs. reports sugars at goal. fasting below 95. walks 1hr/day. fetus active. compliant with fkc bid. Patient refused IOL at 39 week. agrees to 40 week IOL. discussed procedure and why early IOL is needed discuss labor precaution, fkc bid, continue to monitor BS 4 x/day. continue to log sugars. week nst bpp. continue metformin 500 qhs. labor precaution. rtc 1 week obc discuss labor precaution, fkc bid, continue to monitor BS 4 x/day. continue to log sugars. week nst bpp. continue metformin 500 qhs. labor precaution. rtc 1 week obc. IOL 02/09 SHARON Calculator Estimated Delivery Date Method Current WG Current Estimate 02/09/25 Ultrasound #1 42w 2d Other Estimates 02/15/25 LMP (Certain) 41w 3d 01/30/25 Ultrasound #2 43w 5d Notes Visit Date: 01/07/25 Last Updated by: Madelin Viveros CNM 34 yo , GDM, metformin 500 Qhs. 1 hr gt and 3hr gtt high. RPR:Nr, , GC/CT-,O+,abs-, HBSAG-,HIV-,HC-, AFP<NIPT, carrier neg. LMP: 05/11/24. EDC 02/13/25. sharon by 8.2 wk sono: 02/09/25, 07/02/24:8w2 Office Procedures OB Clinic LOC & Office Proc's Nursing/Assessment Patient Status: Established Patient OB Clinic Nursing Assessment: Medication Reconciliation, Update PMH in EMR and Vital Signs OB Clinic Coordination of Care: Complex Care and Chronic Disease 1-5, Consent,records obtained, informed consent and 4+ Authorizations needed Established Patient Charge Established Patient Point Assignment: 85 Post Follow-up Visit Post Follow up Visit: Yes
--- NOTE | 2025-02-25 14:24 | AMBOBPPN_ITS ---
Vital Signs 02/25/25 14:13 02/25/25 14:26 Weight 92.703 kg Weight Measurement Method Standing Scale BP 109/75 109/75 Blood Pressure Source Automatic Cuff Blood Pressure Location Right Upper Arm Position Sitting Respiration 17 17 Pulse 82 82 Pulse Source Monitor Temp 97.8 F 97.8 F Temp Source Temporal Artery Scan Pulse Oximetry (%) 96 96 Oxygen Delivery Method Room Air Allergies/Home Meds Allergies & Medications Allergies No Known Allergies Allergy (Verified 02/25/25 14:24) Intake Visit Data Collection New Patient or Established: Established Patient (seen at [facility] within 3 years) Reason for Visit:: Consent obtained for Telemed Visit: No Seen by Clinical Staff ONLY (RN/MA): No Financial Aid Officer Required: No Do You Feel Safe at Home: Yes Authorities Contacted: N/A PCP or OBGYN visit in last 3 months: Yes Date of Last PCP or OBGYN visit: 02/10/25 Hx Now: No Are you currently on any form of Control: No Pain Present Currently: No Pain Scale Used: Keene-Figueroa/Numerical Pain scale:: 0 Smoking Status Smoking Status: Never 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 Past Medical History: No Hx Neurological Disorders, No Hx Cardiac Disorders, No Hx Cancer, No Hx Blood Disorders, No Hx Gastrointestinal Disorders, No Hx Renal Disease, No Hx Diabetes Mellitus Type 1 and No Hx Diabetes Mellitus Type 2 Questionnaires Covid-19 Vaccine Questionnaire Has patient been vacinated for Covid-19 Have you been vacinated for Covid-19: Yes Social History Living Situation History Lives With: Family Housing: House Tobacco History Smoking Status: Never smoker Second Hand Smoke Exposure: No Alcohol History Alcohol Intake: Never Alcohol Intake Frequency: holidays/special occasions only Domestic Abuse History Do You Feel Safe at Home: Yes EPDS - PP Depression Screening [place] Pospartum Depression Screen I have been able to laugh and see the funny side of things: (0) As much as I always could I have looked forward with enjoyment to things: (0) As much as I ever did I have blamed myself unnecessarily when things went wrong: (0) No, never I have been anxious or worried for no good reason: (0) No, not at all I have felt scared or panicky for no very good reason: (0) No, not at all Things have been getting on top of me: (0) No, I have been coping as well as ever I have been so unhappy that I have had difficulty sleeping: (0) No, not at all I have felt sad or miserable: (0) No, not at all I have been so unhappy that I have been crying: (0) No, never The thought of harming myself has occurred to me: (0) Never Care OB Visit Log OB Flowsheet Initial Weight: Not Recorded Date -?-?-?-?-?-?-?-?-?-?-?-?- EGA Weight BP Alb Glu CTX Pres Fundal ht FHR Mov Dilation Station Effacement Hx Notes Visit Note 01/07/25 -?-?-?-?-?-?-?-?-?-?-?-?- 35w 2d 99.507 kg 106/75 absent cephalic 146 active 34 yo IUP 35 week by 8 week sono for OB transfer. GDM on metformin 500mg Q HS, cheks BS 4 x dailt, reports fasting over 100 usually, depening on diet. patient had stopped taking metformin for several days. fetus active, still working, no labor complaints, schedule MFM appointment for growth, continue metformin 500 q HS, start weekly nst/bpp, fkc bid, I discussed diet and fkc, walk 40 min daily. rtc 2 week, gbs nv 01/14/25 -?-?-?-?-?-?-?-?-?-?--?-?- 36w 2d 99.337 kg 115/76 absent cephalic 36 145 active GDM on Metformin 500 qhs. reports Improved compliance with GDM diet. reviewed BS on ap. fasting under 100 :85% of the time. otherwise BS after meals are at goal. patient walk 1 hr daily. reports good FM and compliant with FKC bid. week NST/BPP started. MFM pending/was ordered urgent GBS t madhavi. GBS today.. continue FKC bid . review labor precaution. reviewed diet and compliance, continue to track sugars and testing, continue week NST/BPP. patient will call [facility] for appointment. rtc 1 week 01/20/25 -?-?-?-?-?-?-?-?-?-?-?-?- 37w 1d 99.45 kg 120/84 at 37w1d with gestational diabetes on metformin, presents for routine care. Reports occasional elevated fasting glucose (102?112 mg/dL), but overall self-monitoring okay. Baby active in AM and postprandially, less so throughout day. Complains of increased num bness in arms/hands this week, consistent with carpal tunnel. Transferred care in 3rd trimester; GBS swab completed last visit. NSTs ongoing weekly. FHT 147 bpm. Plan: Schedule ultrasound for growth Book 39w induction date per GDM protocol (patient prefers to avoid but counseled on risks) Continue metformin 500mg qHS and SMBG Continue weekly NSTs Discuss labor plan after ultrasound precautions reviewed 01/28/25 -?-?-?-?-?-?-?-?-?-?-?-?- 38w 2d 100.698 kg 115/78 absent breech 37 145 active 38wk2 with GDM. diet and metformin 500 q hs. reports sugars at goal. fasting below 95. walks 1hr/day. fetus active. compliant with fkc bid. Patient refused IOL at 39 week. agrees to 40 week IOL. discussed procedure and why early IOL is needed discuss labor precaution, fkc bid, continue to monitor BS 4 x/day. continue to log sugars. week nst bpp. continue metformin 500 qhs. labor precaution. rtc 1 week obc discuss labor precaution, fk c bid, continue to monitor BS 4 x/day. continue to log sugars. week nst bpp. continue metformin 500 qhs. labor precaution. rtc 1 week obc. IOL 02/09 SHARON Calculator Estimated Delivery Date Method Current WG Current Estimate 02/09/25 Ultrasound #1 42w 2d Other Estimates 02/15/25 LMP (Certain) 41w 3d 01/30/25 Ultrasound #2 43w 5d Notes Visit Date: 01/07/25 Last Updated by: Madelin Viveros CNM 34 yo , GDM, metformin 500 Qhs. 1 hr gt and 3hr gtt high. RPR:Nr, , GC/CT-,O+,abs-, HBSAG-,HIV-,HC-, AFP<NIPT, carrier neg. LMP: 05/11/24. EDC 02/13/25. sharon by 8.2 wk sono: 02/09/25, 07/02/24:8w2 HPI Interval History: Patient reports ongoing vaginal bleeding, which she was informed is normal lochia that can continue for up to 6 weeks . She also mentions experiencing some pain, particularly in the morning, described as muscle stiffness and soreness related to the surgical incision. The pain tends to improve with movement and increased activity. Patient inquires about the continuation of her gestational diabetes medication, which she has not been taking since delivery. She is informed that a glucose test will be performed at the 6-week briseida to assess for any residual high blood sugars and determine the need for further management. She is a 3-week patient with a history of gestational diabetes, presenting for a routine visit following a section delivery on February 03, 2025. The patient's incision has healed well, and she has been cleared for most activities, with the exception of sexual activity, which should be resumed after 6 weeks . Veronica expresses interest in discussing control options at her next appointment. Her obstetric history includes G1 T1 L1, with delivery via section on February 03, 2025. She has a history of gestational diabetes during . Patient is encouraged to start exercising, advised to wait until 6 weeks to resume sexual activity, and encouraged to watch diet and lose weight. Exam Narrative Physical exam: - Abdomen: section incision site examined. Wound is fully healed and sealed. Office Procedures OB Clinic LOC & Office Proc's Nursing/Assessment Patient Status: Established Patient OB Clinic Nursing Assessment: Medication Reconciliation, Update PMH in EMR and Vital Signs OB Clinic Coordination of Care: Complex Care and Chronic Disease 1-5, Consent,records obtained, informed consent and 4+ Authorizations needed Established Patient Charge Established Patient Point Assignment: 85 Post Follow-up Visit Post Follow up Visit: Yes Assessment & Plan Diagnosis / Problem List (1) care following delivery: Status: Acute (2) delivery delivered: Status: Acute Plan status post section: - Wound healed well with no signs of infection or complications. - Patient reports morning pain and muscle stiffness/soreness. - Lochia continues, normal for up to 6 weeks . - Cleared for all activities except sexual intercourse. - Advised to wait until 6 weeks to resume sexual activity. - Encouraged to increase physical activity as tolerated. - Follow-up appointment scheduled in 3 weeks. - Disability paperwork to be completed during visit. History of gestational diabetes: - 50% chance of persistent diabetes . - Current glucose status unknown. - Schedule glucose tolerance test at 6-week visit. - Advised on lifestyle modifications: ? Increase physical activity. ? Monitor diet. ? Focus on weight loss. - Discontinue glucose monitoring for now. - Reassess need for glucose management based on 6-week test results. Family planning: - Patient has not yet initiated contraception. - Advised patient to research contraceptive options. - Discuss and potentially initiate chosen contraceptive method at 6-week visit.
[2025-02-25 14:26] VITALS: BP 109/75; PULSE 82; RESP 17; TEMP 36.6; O2SAT 96
== END 2025-02-25 14:47 | disposition home or self-care (01) ==
LOC: HODSOBC 14:04
PROVIDERS: Supervising Provider Obstetrics & Gynecology; Visit Provider Obstetrics & Gynecology
DX: Z39.2 Encounter for routine postpartum follow-up (principal); Z86.32 Personal history of gestational diabetes
CPT/HCPCS: Z1038

== ENCOUNTER 2025-03-20 15:10 | Outpatient (AMB) | payer BC, SELFPAY ==
[2025-03-20 15:20] VITALS: BP 120/81; PULSE 74; RESP 17; TEMP 36.3; O2SAT 97
--- NOTE | 2025-03-20 15:20 | AMB.OBVISIT ---
Vital Signs 03/20/25 15:20 Weight 94.404 kg Weight Measurement Method Standing Scale BP 120/81 Blood Pressure Source Automatic Cuff Blood Pressure Location Right Upper Arm Position Sitting Respiration 17 Pulse 74 Pulse Source Monitor Temp 97.4 F Temp Source Temporal Artery Scan Pulse Oximetry (%) 97 Oxygen Delivery Method Room Air Allergies/Home Meds Allergies & Medications Allergies No Known Allergies Allergy (Verified 03/20/25 15:21) Intake Visit Data Collection New Patient or Established: Established Patient (seen at [facility] within 3 years) Reason for Visit:: POST Consent obtained for Telemed Visit: No Seen by Clinical Staff ONLY (RN/MA): No 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 1. Little interest or pleasure in doing things: not at all PHQ-9 8. Moving or speaking so slowly that other people could have noticed? - Or the opposite - being so fidgety or restless that you have been moving around a lot more than usual: not at all Source: Developed by Drs. Boaz Bledsoe, Cinda Balbuena, Joe Nolen and colleagues, with an educational feroz from [employer]. 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 She mentions that her menstrual period began around the 6-week briseida. The patient is currently her . She reports some numbness around the incision site, which she was informed is normal and expected to resolve within approximately 3 months post-surgery. Patient inquires about obtaining a prescription for vitamins. She also mentions the need for a follow-up glucose tolerance test, which is scheduled to be performed at 2 months . No other significant symptoms or concerns are reported by the patient at this time. She is a 34-year-old female presenting for a 6-week follow-up after undergoing a due to prolonged rupture of membranes with arrest of descent. Her obstetric history includes G1 T1 L1. She is currently taking vitamins, calcium, and vitamin D supplements. The patient is using condoms for control. Reports resumption of menstrual period and numbness around the incision site. Exam Narrative Physical exam: Abdomen: incision site appears well-healed. General General Appearance: alert, in no apparent distress and healthy appearing Head Head exam: atraumatic Neck Neck exam: Present normal inspection and trachea midline Chest Chest inspection: Present normal inspection and symmetric chest wall rise External exam: Present normal external exam; Absent tenderness Neuro Neurological exam: Present oriented X3 Psych Psychiatric exam: Present normal affect and normal mood Office Procedures OB Clinic LOC & Office Proc's Nursing/Assessment Patient Status: Established Patient OB Clinic Nursing Assessment: Medication Reconciliation, Update PMH in EMR and Vital Signs OB Clinic Coordination of Care: Complex Care and Chronic Disease 1-5, Consent,records obtained, informed consent, Education Simp Pt/Fam and 4+ Authorizations needed Established Patient Charge Established Patient Point Assignment: 100 Post Follow-up Visit Post Follow up Visit: Yes Assessment & Plan Diagnosis / Problem List (1) care following delivery: Status: Acute Plan status Plan: - Continue , with recommendation to introduce solid foods at 6 months and gradually wean. - Prescribe vitamins, calcium, and vitamin D supplements for 1 year. - Order 2-month glucose tolerance test: ? Patient instructed to complete test at 2 months . ? Schedule phone appointment for result discussion. - Anticipate resolution of incision site numbness within approximately 1 month. - Hand Weaver on contraception: patient opts for condom use at this time. care Plan: - Educate on importance of balanced nutrition while . - Hand Weaver on gradual introduction of solid foods to infant at 6 months, with continuation of for bonding if desired. - Advise on potential risks of prolonged exclusive beyond 6 months, including maternal osteoporosis and nutritional deficiencies.
== END 2025-03-20 15:46 | disposition home or self-care (01) ==
LOC: HODSOBC 15:10
PROVIDERS: PCP Obstetrics & Gynecology; Referring Provider Obstetrics & Gynecology; Supervising Provider Obstetrics & Gynecology; Visit Provider Obstetrics & Gynecology
DX: Z39.2 Encounter for routine postpartum follow-up (principal); Z39.1 Encounter for care and examination of lactating mother
CPT/HCPCS: 59430; 99213; G0463